=== PATIENT | male | born 1985 | race African-American/Black ===

== ENCOUNTER 2021-02-27 13:36 | Inpatient (IN) | payer OTHER ==
[2021-02-27 16:56] VITALS: BMI 28.4
[2021-02-27] MEDS ORDERED: MAGNESIUM CITRATE 300 ML BOTTLE PO PRN (17:07)
[2021-02-27] MEDS ORDERED: MENTHOL/PHENOL 1 EACH UD MM PRN (17:07)
[2021-02-27] MEDS ORDERED: MAGNESIUM HYDROX 2400MG/30ML ORAL SUSPENSION 30 ML CUP PO PRN (17:07)
[2021-02-27] MEDS ORDERED: ACETAMINOPHEN 325 MG TABLET (FP) PO PRN ×2 (17:07)
[2021-02-27] MEDS ORDERED: BISMUTH SUBSALICYLATE 524 MG/30 ML UD PO PRN (17:07)
[2021-02-27] MEDS ORDERED: MAG HYDROX/AL HYDROX/SIMETH 30 ML UNIT-DOSE CUP PO PRN (17:07)
[2021-02-27] MEDS ORDERED: NICOTINE POLACRILEX 2 MG GUM BUC PRN (17:07)
[2021-02-27] MEDS ORDERED: TRIMETHOBENZAMIDE HCL 200MG/2ML INJ IM ONE ×2 (17:42→17:52)
[2021-02-27] MEDS: diazePAM 5 MG TABLET PO PRN (19:59)
[2021-02-27] MEDS: hydrOXYzine PAMOATE 25 MG CAPSULE (FP) PO PRN (19:59)
[2021-02-27] MEDS: METHOCARBAMOL 500 MG TABLET PO PRN (19:59)
[2021-02-27] MEDS: IBUPROFEN 400 MG TABLET (FP) PO PRN (20:20)
[2021-02-27] MEDS: cloNIDine HCL 0.1 MG TABLET PO SCH (20:21)
[2021-02-27] MEDS ORDERED: PATIENT'S OWN MEDICATION (NON-FORMULARY) (Melatonin [Melatonin] 10 MG Tablet) PO SCH (22:00)
[2021-02-27] MEDS: AMOXICILLIN 500 MG CAPSULE (FP) PO SCH (23:14)
[2021-02-27] MEDS: diazePAM 5 MG TABLET PO SCH (23:14)
[2021-02-27] MEDS: MELATONIN 5 MG TABLETS PO SCH (23:15)
[2021-02-27] MEDS: THIAMINE HCL 100 MG TABLET (FP) PO SCH (23:16)
[2021-02-27] MEDS: SELENIUM SULFIDE 2.5% LOTION 4 OZ. TP SCH (23:18)
[2021-02-27] MEDS: BICTEGRAV/EMTRICIT/TENOFOV (BIKTARVY) 50-200-25 MG TABLET PO SCH (23:19)
[2021-02-27] MEDS: PRAZOSIN HCL 5 MG CAPSULE PO SCH (23:36)
[2021-02-28] MEDS: diazePAM 5 MG TABLET PO SCH ×4 (05:55→22:22)
[2021-02-28] MEDS: AMOXICILLIN 500 MG CAPSULE (FP) PO SCH ×3 (06:48→22:22)
[2021-02-28] MEDS ORDERED: METHADONE HCL 10 MG TABLET PO ONE (08:45)
[2021-02-28] MEDS ORDERED: METHADONE 160 MG, METHADONE 5 MG PO ONE (09:15)
[2021-02-28] MEDS ORDERED: METHADONE HCL 5 MG TABLET ONE (09:48)
[2021-02-28] MEDS ORDERED: METHADONE HCL 40 MG DISPERSABLE TABLET ONE (09:48)
[2021-02-28] MEDS ORDERED: PATIENT'S OWN MEDICATION (NON-FORMULARY) (Omeprazole 20 MG Capsule.Dr) PO SCH (10:00)
[2021-02-28] MEDS: cloNIDine HCL 0.1 MG TABLET PO SCH (10:06)
[2021-02-28] MEDS: METHOCARBAMOL 500 MG TABLET PO PRN (10:06)
[2021-02-28] MEDS: amLODIPine BESYLATE 5 MG TABLET (FP) PO SCH (10:06)
[2021-02-28] MEDS: PRENATAL VITAMINS W/ FOLIC ACID TABLET (FP) PO SCH (10:07)
[2021-02-28] MEDS: hydrOXYzine PAMOATE 25 MG CAPSULE (FP) PO PRN (10:07)
[2021-02-28] MEDS: BICTEGRAV/EMTRICIT/TENOFOV (BIKTARVY) 50-200-25 MG TABLET PO SCH (10:07)
[2021-02-28] MEDS: PANTOPRAZOLE 40 MG TABLET PO SCH (10:07)
[2021-02-28] MEDS: SELENIUM SULFIDE 2.5% LOTION 4 OZ. TP SCH (10:08)
[2021-02-28] MEDS: NICOTINE 14 MG/24 HOURS TOPICAL PATCH TD SCH (10:08)
[2021-02-28 10:27] LABS: HEMATOCRIT 34.5 % (35.4-49); HEMOGLOBIN 11.4 GM/dL (11.7-16.9); MCH 29.6 pg (25.7-33.7); MCHC 33.1 g/dl (32.0-35.9); MEAN CELL VOLUME 89.5 fl (80-96); PLATELET COUNT 219 K/MM3 (134-434); RBC 3.85 M/mm3 (4.00-5.60); RDW 15.7 % (11.9-15.9); WHITE BLOOD COUNT 4.8 K/mm3 (4.0-10.0)
[2021-02-28 10:37] LABS: ALBUMIN 3.8 g/dl (3.4-5.0); BLOOD UREA NITROGEN 9.2 mg/dL (7-18)
[2021-02-28 10:40] LABS: CREATININE 0.9 mg/dL (0.55-1.3)
[2021-02-28 10:41] LABS: TOT PROT 8.3 g/dl (6.4-8.2)
[2021-02-28] MEDS: IBUPROFEN 400 MG TABLET (FP) PO PRN ×2 (15:22→22:23)
[2021-02-28] MEDS: MELATONIN 5 MG TABLETS PO SCH (22:22)
[2021-02-28] MEDS: THIAMINE HCL 100 MG TABLET (FP) PO SCH (22:22)
[2021-02-28] MEDS: PRAZOSIN HCL 5 MG CAPSULE PO SCH (22:22)
[2021-03-01] MEDS ORDERED: METHADONE HCL 40 MG DISPERSABLE TABLET ONE (04:46)
[2021-03-01] MEDS ORDERED: METHADONE HCL 5 MG TABLET ONE (04:46)
[2021-03-01] MEDS: AMOXICILLIN 500 MG CAPSULE (FP) PO SCH ×3 (05:44→22:28)
[2021-03-01] MEDS: diazePAM 5 MG TABLET PO SCH ×5 (05:45→22:31)
[2021-03-01] MEDS: METHADONE 160 MG, METHADONE 5 MG PO SCH (05:45)
[2021-03-01] MEDS ORDERED: METHADONE HCL 40 MG DISPERSABLE TABLET PO SCH (06:00)
[2021-03-01] MEDS: IBUPROFEN 400 MG TABLET (FP) PO PRN ×2 (10:14→22:33)
[2021-03-01] MEDS: NICOTINE 14 MG/24 HOURS TOPICAL PATCH TD SCH (10:15)
[2021-03-01] MEDS: PANTOPRAZOLE 40 MG TABLET PO SCH (10:15)
[2021-03-01] MEDS: BICTEGRAV/EMTRICIT/TENOFOV (BIKTARVY) 50-200-25 MG TABLET PO SCH (10:15)
[2021-03-01] MEDS: amLODIPine BESYLATE 5 MG TABLET (FP) PO SCH (10:15)
[2021-03-01] MEDS: PRENATAL VITAMINS W/ FOLIC ACID TABLET (FP) PO SCH (10:16)
[2021-03-01] MEDS: cloNIDine HCL 0.1 MG TABLET PO SCH (10:16)
[2021-03-01] MEDS: SELENIUM SULFIDE 2.5% LOTION 4 OZ. TP SCH (10:16)
[2021-03-01] MEDS: METHOCARBAMOL 500 MG TABLET PO PRN (17:41)
[2021-03-01] MEDS: hydrOXYzine PAMOATE 25 MG CAPSULE (FP) PO PRN (17:43)
[2021-03-01] MEDS: diazePAM 5 MG TABLET PO PRN ×2 (17:43→22:31)
[2021-03-01] MEDS: MELATONIN 5 MG TABLETS PO SCH (22:28)
[2021-03-01] MEDS: PRAZOSIN HCL 5 MG CAPSULE PO SCH (22:28)
[2021-03-01] MEDS: THIAMINE HCL 100 MG TABLET (FP) PO SCH (22:28)
[2021-03-02] MEDS: ONDANSETRON *ODT* 4 MG TABLET SL PRN ×2 (01:32→22:23)
[2021-03-02] MEDS ORDERED: METHADONE HCL 40 MG DISPERSABLE TABLET ONE (05:00)
[2021-03-02] MEDS ORDERED: METHADONE HCL 5 MG TABLET ONE (05:01)
[2021-03-02] MEDS: diazePAM 5 MG TABLET PO SCH ×2 (06:03→17:33)
[2021-03-02] MEDS: AMOXICILLIN 500 MG CAPSULE (FP) PO SCH ×3 (06:04→22:21)
[2021-03-02] MEDS: METHADONE 160 MG, METHADONE 5 MG PO SCH (06:04)
[2021-03-02] MEDS: BICTEGRAV/EMTRICIT/TENOFOV (BIKTARVY) 50-200-25 MG TABLET PO SCH (10:11)
[2021-03-02] MEDS: amLODIPine BESYLATE 5 MG TABLET (FP) PO SCH (10:12)
[2021-03-02] MEDS: PRENATAL VITAMINS W/ FOLIC ACID TABLET (FP) PO SCH (10:12)
[2021-03-02] MEDS: cloNIDine HCL 0.1 MG TABLET PO SCH (10:12)
[2021-03-02] MEDS: PANTOPRAZOLE 40 MG TABLET PO SCH (10:12)
[2021-03-02] MEDS: NICOTINE 14 MG/24 HOURS TOPICAL PATCH TD SCH (10:12)
[2021-03-02] MEDS: SELENIUM SULFIDE 2.5% LOTION 4 OZ. TP SCH (10:14)
[2021-03-02] MEDS: diazePAM 5 MG TABLET PO PRN ×2 (11:13→14:35)
[2021-03-02] MEDS: IBUPROFEN 400 MG TABLET (FP) PO PRN ×2 (11:13→17:31)
[2021-03-02 14:11] LABS: SARS-CoV-2 NAA Not Detected (Not Detected)
[2021-03-02 19:47] LABS: URINE APPEARANCE CLEAR; URINE BILIRUBIN NEGATIVE (NEGATIVE); URINE COLOR YELLOW; URINE GLUCOSE (UA) NEGATIVE (NEGATIVE); URINE KETONE NEGATIVE (NEGATIVE); URINE LEUK ESTERASE NEGATIVE (NEGATIVE); URINE NITRITE NEGATIVE (NEGATIVE); URINE PROTEIN NEGATIVE (NEGATIVE)
[2021-03-02] MEDS: MELATONIN 5 MG TABLETS PO SCH (22:21)
[2021-03-02] MEDS: THIAMINE HCL 100 MG TABLET (FP) PO SCH (22:21)
[2021-03-02] MEDS: PRAZOSIN HCL 5 MG CAPSULE PO SCH (22:22)
[2021-03-02] MEDS: hydrOXYzine PAMOATE 25 MG CAPSULE (FP) PO PRN (22:22)
[2021-03-02] MEDS: METHOCARBAMOL 500 MG TABLET PO PRN (22:22)
[2021-03-03] MEDS ORDERED: METHADONE HCL 5 MG TABLET ONE (04:16)
[2021-03-03] MEDS ORDERED: METHADONE HCL 40 MG DISPERSABLE TABLET ONE (04:16)
[2021-03-03] MEDS: AMOXICILLIN 500 MG CAPSULE (FP) PO SCH (05:40)
[2021-03-03] MEDS: METHADONE 160 MG, METHADONE 5 MG PO SCH (05:40)
[2021-03-03] MEDS: IBUPROFEN 400 MG TABLET (FP) PO PRN (05:41)
[2021-03-03] MEDS ORDERED: diazePAM 5 MG TABLET PO ONE (06:00)
[2021-03-03 09:04] VITALS: BP 131/86; PULSE 89; TEMP 96.1
[2021-03-03] MEDS: PANTOPRAZOLE 40 MG TABLET PO SCH (09:45)
[2021-03-03] MEDS: amLODIPine BESYLATE 5 MG TABLET (FP) PO SCH (09:45)
[2021-03-03] MEDS: BICTEGRAV/EMTRICIT/TENOFOV (BIKTARVY) 50-200-25 MG TABLET PO SCH (09:46)
[2021-03-03] MEDS: cloNIDine HCL 0.1 MG TABLET PO SCH (09:46)
[2021-03-03] MEDS: NICOTINE 14 MG/24 HOURS TOPICAL PATCH TD SCH (09:46)
[2021-03-03] MEDS: PRENATAL VITAMINS W/ FOLIC ACID TABLET (FP) PO SCH (09:46)
[2021-03-03] MEDS: SELENIUM SULFIDE 2.5% LOTION 4 OZ. TP SCH (09:47)
== END 2021-03-03 12:06 | disposition home or self-care (01) | DRG 773 ==
LOC: YASAS 13:36 → Y3N 17:38
PROVIDERS: ADMIT Allergy & Immunology; ATTEND Allergy & Immunology
PROC: HZ2ZZZZ Detoxification Services for Substance Abuse Treatment (ICD-10-PCS; principal; 2021-02-27)
DX: F11.23 Opioid dependence with withdrawal (principal); F13.20 Sedative, hypnotic or anxiolytic dependence, uncomplicated; F12.20 Cannabis dependence, uncomplicated; F17.210 Nicotine dependence, cigarettes, uncomplicated; F19.24 Other psychoactive substance dependence with psychoactive substance-induced mood disorder; Z21 Asymptomatic human immunodeficiency virus [HIV] infection status; D64.9 Anemia, unspecified; G47.00 Insomnia, unspecified; I10 Essential (primary) hypertension; K21.9 Gastro-esophageal reflux disease without esophagitis; Z56.0 Unemployment, unspecified; Z59.0 Homelessness
CPT/HCPCS: 36415; 80053; 81003; 85027; 86780; 93005; 93010; C9803; J0735; Q0162; U0003; U0005

== ENCOUNTER 2021-05-22 12:16 | Inpatient (IN) | payer OTHER ==
[2021-05-22 15:12] VITALS: BMI 28.8
[2021-05-22] MEDS ORDERED: MAGNESIUM HYDROX 2400MG/30ML ORAL SUSPENSION 30 ML CUP PO PRN (16:11)
[2021-05-22] MEDS ORDERED: MAG HYDROX/AL HYDROX/SIMETH 30 ML UNIT-DOSE CUP PO PRN (16:11)
[2021-05-22] MEDS ORDERED: ACETAMINOPHEN 325 MG TABLET (FP) PO PRN ×2 (16:11)
[2021-05-22] MEDS ORDERED: MENTHOL/PHENOL 1 EACH UD MM PRN (16:11)
[2021-05-22] MEDS ORDERED: MAGNESIUM CITRATE 300 ML BOTTLE PO PRN (16:11)
[2021-05-22] MEDS ORDERED: BISMUTH SUBSALICYLATE 524 MG/30 ML PO PRN (16:11)
[2021-05-22] MEDS ORDERED: ONDANSETRON *ODT* 4 MG TABLET SL PRN (16:11)
[2021-05-22] MEDS ORDERED: ALBUTEROL SO4 HFA INHALER IH PRN (16:15)
[2021-05-22] MEDS ORDERED: PROMETHAZINE HCL ORAL SYRUP 6.25 MG/5 ML (BULK BOTTLE) PO PRN (16:32)
[2021-05-22] MEDS ORDERED: hydrOXYzine PAMOATE 25 MG CAPSULE (FP) PO ONE (19:10)
[2021-05-22] MEDS ORDERED: LORazepam 2 MG TABLET ONE ×2 (19:10→23:28)
[2021-05-22] MEDS: LORazepam 2 MG TABLET PO SCH ×2 (19:12→23:28)
[2021-05-22] MEDS: hydrOXYzine PAMOATE 25 MG CAPSULE (FP) PO SCH ×2 (19:12→23:26)
[2021-05-22] MEDS ORDERED: MELATONIN 5 MG TABLETS PO SCH (22:00)
[2021-05-22] MEDS: PRENATAL VITAMINS W/ FOLIC ACID TABLET (FP) PO SCH (23:25)
[2021-05-22] MEDS: THIAMINE HCL 100 MG TABLET (FP) PO SCH (23:26)
[2021-05-23] MEDS ORDERED: LORazepam 2 MG TABLET ONE ×2 (05:22→10:28)
[2021-05-23] MEDS ORDERED: hydrOXYzine PAMOATE 25 MG CAPSULE (FP) PO ONE (05:22)
[2021-05-23] MEDS: hydrOXYzine PAMOATE 25 MG CAPSULE (FP) PO SCH ×2 (05:45→10:23)
[2021-05-23] MEDS: LORazepam 2 MG TABLET PO SCH ×4 (05:45→22:11)
[2021-05-23] MEDS ORDERED: methaDONE HCL 10 MG TABLET PO SCH (08:30)
[2021-05-23] MEDS ORDERED: methaDONE HCL 40 MG DISPERSABLE TABLET ONE (09:58)
[2021-05-23] MEDS ORDERED: PATIENT'S OWN MEDICATION (NON-FORMULARY) (Clonidine Hcl [Clonidine Hcl Er] 0.1 MG Tab.Er.1 PO SCH (10:00)
[2021-05-23] MEDS ORDERED: cloNIDine HCL 0.1 MG TABLET ONE (10:07)
[2021-05-23 10:10] LABS: HEMOGLOBIN 12.5 GM/dL (11.7-16.9); MCH 29.4 pg (25.7-33.7); MCHC 32.9 g/dl (32.0-35.9); MEAN CELL VOLUME 89.5 fl (80-96); MEAN PLT VOLUME 8.5 fl (7.5-11.1); PLATELET COUNT 183 10^3/uL (134-434); RBC 4.25 M/mm3 (4.00-5.60); RDW 14.3 % (11.9-15.9)
[2021-05-23 10:22] LABS: CALCIUM 8.8 mg/dL (8.5-10.1)
[2021-05-23] MEDS: PRENATAL VITAMINS W/ FOLIC ACID TABLET (FP) PO SCH (10:23)
[2021-05-23 10:24] LABS: ALBUMIN 3.3 g/dl (3.4-5.0)
[2021-05-23] MEDS: BICTEGRAV/EMTRICIT/TENOFOV (BIKTARVY) 50-200-25 MG TABLET PO SCH (10:24)
[2021-05-23 10:29] LABS: BLOOD UREA NITROGEN 7.9 mg/dL (7-18); TOT PROT 7.1 g/dl (6.4-8.2)
[2021-05-23 10:33] LABS: BILIRUBIN,TOTAL 0.4 mg/dL (0.2-1)
[2021-05-23] MEDS ORDERED: hydrOXYzine PAMOATE 50 MG CAPSULE (FP) PO PRN (12:04)
[2021-05-23] MEDS ORDERED: guaiFENesin 200 MG/10 ML 10 ML UNIT-DOSE CUPS PO PRN (12:31)
[2021-05-23] MEDS: GABAPENTIN 300 MG CAPSULE PO SCH ×2 (15:40→22:10)
[2021-05-23] MEDS: amLODIPine BESYLATE 10 MG TABLET (FP) PO SCH (15:40)
[2021-05-23] MEDS: AMOXICILLIN 500 MG CAPSULE (FP) PO SCH ×2 (15:40→22:25)
[2021-05-23] MEDS: NICOTINE 10 MG CARTRIDGE (INHALER) IH PRN (17:50)
[2021-05-23] MEDS: IBUPROFEN 400 MG TABLET (FP) PO PRN (17:54)
[2021-05-23] MEDS: THIAMINE HCL 100 MG TABLET (FP) PO SCH (22:11)
[2021-05-23] MEDS: cloNIDine HCL 0.1 MG TABLET PO SCH (22:11)
[2021-05-23] MEDS: PROMETHAZINE HCL ORAL SYRUP 6.25 MG/5 ML (BULK BOTTLE) PO PRN (22:14)
[2021-05-23] MEDS: SELENIUM SULFIDE 2.5% LOTION 4 OZ. TP SCH (22:15)
[2021-05-23] MEDS: MELATONIN 5 MG TABLETS PO SCH (23:31)
[2021-05-24] MEDS: LORazepam 1 MG TABLET PO PRN ×2 (02:54→14:42)
[2021-05-24] MEDS: AMOXICILLIN 500 MG CAPSULE (FP) PO SCH ×3 (05:44→23:03)
[2021-05-24] MEDS: GABAPENTIN 300 MG CAPSULE PO SCH ×3 (05:44→22:23)
[2021-05-24] MEDS: LORazepam 1 MG TABLET PO SCH ×4 (05:44→22:23)
[2021-05-24] MEDS ORDERED: methaDONE HCL 40 MG DISPERSABLE TABLET ONE (05:46)
[2021-05-24] MEDS: PROMETHAZINE HCL ORAL SYRUP 6.25 MG/5 ML (BULK BOTTLE) PO PRN ×3 (05:49→18:11)
[2021-05-24] MEDS: SELENIUM SULFIDE 2.5% LOTION 4 OZ. TP SCH (09:33)
[2021-05-24] MEDS: PRENATAL VITAMINS W/ FOLIC ACID TABLET (FP) PO SCH (10:19)
[2021-05-24] MEDS: cloNIDine HCL 0.1 MG TABLET PO SCH ×2 (10:20→22:23)
[2021-05-24] MEDS: METHOCARBAMOL 500 MG TABLET PO PRN (10:20)
[2021-05-24] MEDS: amLODIPine BESYLATE 10 MG TABLET (FP) PO SCH (10:20)
[2021-05-24] MEDS: BICTEGRAV/EMTRICIT/TENOFOV (BIKTARVY) 50-200-25 MG TABLET PO SCH (12:17)
[2021-05-24] MEDS: IBUPROFEN 400 MG TABLET (FP) PO PRN (12:52)
[2021-05-24] MEDS: NICOTINE 10 MG CARTRIDGE (INHALER) IH PRN (14:42)
[2021-05-24] MEDS: FAMOTIDINE 20 MG TABLET PO SCH (22:22)
[2021-05-24] MEDS: THIAMINE HCL 100 MG TABLET (FP) PO SCH (22:23)
[2021-05-24] MEDS: MELATONIN 5 MG TABLETS PO SCH (22:24)
[2021-05-25] MEDS: PROMETHAZINE HCL ORAL SYRUP 6.25 MG/5 ML (BULK BOTTLE) PO PRN ×3 (00:11→17:08)
[2021-05-25] MEDS: LORazepam 0.5 MG TABLET PO PRN ×2 (01:17→14:15)
[2021-05-25] MEDS: METHOCARBAMOL 500 MG TABLET PO PRN (01:18)
[2021-05-25] MEDS: IBUPROFEN 400 MG TABLET (FP) PO PRN (01:18)
[2021-05-25] MEDS ORDERED: methaDONE HCL 40 MG DISPERSABLE TABLET ONE (04:32)
[2021-05-25] MEDS: LORazepam 0.5 MG TABLET PO SCH ×4 (05:14→22:35)
[2021-05-25] MEDS: GABAPENTIN 300 MG CAPSULE PO SCH ×3 (05:15→22:35)
[2021-05-25] MEDS: AMOXICILLIN 500 MG CAPSULE (FP) PO SCH ×3 (05:15→22:35)
[2021-05-25] MEDS ORDERED: MASKS NR ONE (09:16)
[2021-05-25] MEDS: PRENATAL VITAMINS W/ FOLIC ACID TABLET (FP) PO SCH (10:01)
[2021-05-25] MEDS: amLODIPine BESYLATE 10 MG TABLET (FP) PO SCH (10:02)
[2021-05-25] MEDS: cloNIDine HCL 0.1 MG TABLET PO SCH ×2 (10:02→22:35)
[2021-05-25] MEDS: BICTEGRAV/EMTRICIT/TENOFOV (BIKTARVY) 50-200-25 MG TABLET PO SCH (10:02)
[2021-05-25] MEDS: FAMOTIDINE 20 MG TABLET PO SCH ×2 (10:02→22:35)
[2021-05-25] MEDS: SELENIUM SULFIDE 2.5% LOTION 4 OZ. TP SCH (12:25)
[2021-05-25] MEDS: MELATONIN 5 MG TABLETS PO SCH (23:16)
[2021-05-25] MEDS: THIAMINE HCL 100 MG TABLET (FP) PO SCH (23:16)
[2021-05-26] MEDS: IBUPROFEN 400 MG TABLET (FP) PO PRN (01:31)
[2021-05-26] MEDS: PROMETHAZINE HCL ORAL SYRUP 6.25 MG/5 ML (BULK BOTTLE) PO PRN ×2 (01:31→09:31)
[2021-05-26] MEDS ORDERED: methaDONE HCL 40 MG DISPERSABLE TABLET ONE (04:26)
[2021-05-26] MEDS ORDERED: LORazepam 0.5 MG TABLET PO ONE (05:00)
[2021-05-26] MEDS: GABAPENTIN 300 MG CAPSULE PO SCH (05:51)
[2021-05-26] MEDS: BICTEGRAV/EMTRICIT/TENOFOV (BIKTARVY) 50-200-25 MG TABLET PO SCH (07:00)
[2021-05-26] MEDS: AMOXICILLIN 500 MG CAPSULE (FP) PO SCH (07:00)
[2021-05-26 09:20] VITALS: BP 122/78; PULSE 81; TEMP 97.8
[2021-05-26] MEDS: PRENATAL VITAMINS W/ FOLIC ACID TABLET (FP) PO SCH (09:30)
[2021-05-26] MEDS: amLODIPine BESYLATE 10 MG TABLET (FP) PO SCH (09:30)
[2021-05-26] MEDS: SELENIUM SULFIDE 2.5% LOTION 4 OZ. TP SCH (09:30)
[2021-05-26] MEDS: FAMOTIDINE 20 MG TABLET PO SCH (09:30)
[2021-05-26] MEDS: cloNIDine HCL 0.1 MG TABLET PO SCH (09:31)
== END 2021-05-26 10:49 | disposition home or self-care (01) | DRG 773 ==
LOC: YASAS 12:16 → Y3N 05-23 10:00
PROVIDERS: ADMIT Allergy & Immunology; ATTEND Allergy & Immunology
PROC: HZ2ZZZZ Detoxification Services for Substance Abuse Treatment (ICD-10-PCS; principal; 2021-05-23)
DX: F13.230 Sedative, hypnotic or anxiolytic dependence with withdrawal, uncomplicated (principal); F11.20 Opioid dependence, uncomplicated; F12.20 Cannabis dependence, uncomplicated; F17.213 Nicotine dependence, cigarettes, with withdrawal; F43.10 Post-traumatic stress disorder, unspecified; F19.24 Other psychoactive substance dependence with psychoactive substance-induced mood disorder; F19.282 Other psychoactive substance dependence with psychoactive substance-induced sleep disorder; I10 Essential (primary) hypertension; J45.909 Unspecified asthma, uncomplicated; M54.5 Low back pain; G89.29 Other chronic pain; K21.9 Gastro-esophageal reflux disease without esophagitis; Z21 Asymptomatic human immunodeficiency virus [HIV] infection status; G47.00 Insomnia, unspecified; R46.0 Very low level of personal hygiene; K02.9 Dental caries, unspecified; D72.819 Decreased white blood cell count, unspecified; M41.9 Scoliosis, unspecified; Z91.013 Allergy to seafood; Z98.890 Other specified postprocedural states; Z56.0 Unemployment, unspecified
CPT/HCPCS: 36415; 71046-TC-FY; 80053; 85027; 86780; C9803; J0735; Q0162; U0003; U0005

== ENCOUNTER 2022-05-01 14:22 | Inpatient (IN) | payer OTHER ==
[2022-05-01] MEDS ORDERED: BISMUTH SUBSALICYLATE 524 MG/30 ML PO PRN (18:02)
[2022-05-01] MEDS ORDERED: NALOXONE HCL (KLOXXADO) 8 MG SPRAY NS PRN (18:02)
[2022-05-01] MEDS ORDERED: ONDANSETRON *ODT* 4 MG TABLET SL PRN (18:02)
[2022-05-01] MEDS ORDERED: LOPERAMIDE HCL 2 MG CAPSULE PO PRN (18:02)
[2022-05-01] MEDS ORDERED: IBUPROFEN 400 MG TABLET (FP) PO PRN (18:02)
[2022-05-01] MEDS ORDERED: ACETAMINOPHEN 325 MG TABLET (FP) PO PRN ×2 (18:02)
[2022-05-01] MEDS ORDERED: DICYCLOMINE HCL 10 MG CAPSULE PO PRN (18:02)
[2022-05-01] MEDS ORDERED: MAGNESIUM CITRATE 300 ML BOTTLE PO PRN (18:02)
[2022-05-01] MEDS ORDERED: BENZOCAINE/MENTHOL (CHLORASEPTIC ) LOZENGE MM PRN (18:02)
[2022-05-01] MEDS ORDERED: NICOTINE 10 MG CARTRIDGE (INHALER) IH PRN (18:02)
[2022-05-01] MEDS ORDERED: MAGNESIUM HYDROX 2400MG/30ML ORAL SUSPENSION 30 ML CUP PO PRN (18:02)
[2022-05-01] MEDS ORDERED: DICYCLOMINE HCL 10 MG CAPSULE ONE (19:37)
[2022-05-01] MEDS ORDERED: ONDANSETRON *ODT* 4 MG TABLET ONE (19:37)
[2022-05-01] MEDS: LORazepam 1 MG TABLET PO PRN (19:38)
[2022-05-01] MEDS ORDERED: LORazepam 1 MG TABLET ONE ×2 (19:38→23:58)
[2022-05-01] MEDS ORDERED: IBUPROFEN 600 MG TABLET (FP) PO ONE (19:43)
[2022-05-01] MEDS: IBUPROFEN 600 MG TABLET (FP) PO PRN (19:44)
[2022-05-01] MEDS ORDERED: ALBUTEROL SO4 HFA INHALER IH PRN (19:45)
[2022-05-01 19:53] VITALS: BMI 23.4
[2022-05-01] MEDS ORDERED: PATIENT'S OWN MEDICATION (NON-FORMULARY) (Clonidine Hcl [Clonidine Hcl Er] 0.1 MG Tab.Er.1 PO SCH (22:00)
[2022-05-01] MEDS ORDERED: GABAPENTIN 100 MG CAPSULE ONE (23:58)
[2022-05-02] MEDS: LORazepam 2 MG TABLET PO SCH ×5 (00:02→22:22)
[2022-05-02] MEDS: GABAPENTIN 300 MG CAPSULE PO SCH ×4 (00:02→22:22)
[2022-05-02] MEDS: THIAMINE HCL 100 MG TABLET (FP) PO SCH ×2 (00:02→22:22)
[2022-05-02] MEDS: MELATONIN 5 MG TABLETS PO SCH ×2 (00:02→22:22)
[2022-05-02] MEDS ORDERED: LORazepam 1 MG TABLET ONE (06:30)
[2022-05-02] MEDS ORDERED: GABAPENTIN 100 MG CAPSULE ONE (06:30)
[2022-05-02] MEDS ORDERED: LORazepam 2 MG TABLET ONE (10:09)
[2022-05-02 10:38] LABS: HEMATOCRIT 35.9 % (35.4-49); HEMOGLOBIN 11.6 GM/dL (11.7-16.9); MCH 27.6 pg (25.7-33.7); MCHC 32.4 g/dl (32.0-35.9); MEAN CELL VOLUME 85.2 fl (80-96); MEAN PLT VOLUME 8.1 fl (7.5-11.1); PLATELET COUNT 256 10^3/uL (134-434); RBC 4.22 M/mm3 (4.00-5.60); WHITE BLOOD COUNT 4.1 K/mm3 (4.0-10.0)
[2022-05-02 10:50] LABS: CALCIUM 9.1 mg/dL (8.5-10.1)
[2022-05-02 10:51] LABS: ALBUMIN 3.1 g/dl (3.4-5.0); BLOOD UREA NITROGEN 4.3 mg/dL (7-18)
[2022-05-02 10:54] LABS: CREATININE 0.9 mg/dL (0.55-1.3)
[2022-05-02 10:56] LABS: BILIRUBIN,TOTAL 0.9 mg/dL (0.2-1)
[2022-05-02] MEDS ORDERED: POTASSIUM CHLORIDE TABS 20 MEQ TABLET.ER (FP) PO ONE (11:17)
[2022-05-02] MEDS ORDERED: methaDONE HCL 10 MG TABLET PO SCH (11:30)
[2022-05-02] MEDS ORDERED: methaDONE HCL 40 MG DISPERSABLE TABLET ONE (13:05)
[2022-05-02] MEDS ORDERED: methaDONE HCL 10 MG TABLET ONE (13:05)
[2022-05-02] MEDS: BICTEGRAV/EMTRICIT/TENOFOV (BIKTARVY) 50-200-25 MG TABLET PO SCH (13:09)
[2022-05-02] MEDS: METHOCARBAMOL 500 MG TABLET PO PRN (13:10)
[2022-05-02] MEDS: amLODIPine BESYLATE 10 MG TABLET (FP) PO SCH (13:10)
[2022-05-02] MEDS: PRENATAL VITAMINS W/ FOLIC ACID TABLET (FP) PO SCH (13:31)
[2022-05-02] MEDS: LORazepam 1 MG TABLET PO PRN (13:56)
[2022-05-02] MEDS: IBUPROFEN 600 MG TABLET (FP) PO PRN (22:24)
[2022-05-03] MEDS: LORazepam 1 MG TABLET PO PRN ×2 (00:46→09:15)
[2022-05-03] MEDS: METHOCARBAMOL 500 MG TABLET PO PRN ×2 (00:46→10:22)
[2022-05-03] MEDS ORDERED: methaDONE HCL 40 MG DISPERSABLE TABLET ONE (04:13)
[2022-05-03] MEDS ORDERED: methaDONE HCL 10 MG TABLET ONE (04:13)
[2022-05-03] MEDS: GABAPENTIN 300 MG CAPSULE PO SCH ×3 (05:30→22:24)
[2022-05-03] MEDS: LORazepam 1 MG TABLET PO SCH ×4 (05:30→22:23)
[2022-05-03] MEDS: IBUPROFEN 600 MG TABLET (FP) PO PRN ×3 (05:35→18:00)
[2022-05-03] MEDS: cloNIDine HCL 0.1 MG TABLET PO PRN ×3 (07:16→22:27)
[2022-05-03] MEDS: BICTEGRAV/EMTRICIT/TENOFOV (BIKTARVY) 50-200-25 MG TABLET PO SCH (10:20)
[2022-05-03] MEDS: amLODIPine BESYLATE 10 MG TABLET (FP) PO SCH (10:20)
[2022-05-03] MEDS: PRENATAL VITAMINS W/ FOLIC ACID TABLET (FP) PO SCH (10:20)
[2022-05-03] MEDS ORDERED: POTASSIUM CHLORIDE ORAL LIQUID 20 MEQ/15 ML PO ONE (13:04)
[2022-05-03] MEDS ORDERED: NICOTINE POLACRILEX 4 MG GUM BUC PRN (14:52)
[2022-05-03] MEDS: MELATONIN 5 MG TABLETS PO SCH (22:24)
[2022-05-03] MEDS: THIAMINE HCL 100 MG TABLET (FP) PO SCH (22:24)
[2022-05-04] MEDS: IBUPROFEN 600 MG TABLET (FP) PO PRN ×2 (03:50→18:24)
[2022-05-04] MEDS: LORazepam 0.5 MG TABLET PO PRN ×3 (03:51→14:53)
[2022-05-04] MEDS: LORazepam 0.5 MG TABLET PO SCH ×5 (04:00→23:02)
[2022-05-04] MEDS: MAG HYDROX/AL HYDROX/SIMETH 30 ML UNIT-DOSE CUP PO PRN (04:02)
[2022-05-04] MEDS ORDERED: methaDONE HCL 40 MG DISPERSABLE TABLET ONE (04:39)
[2022-05-04] MEDS ORDERED: methaDONE HCL 10 MG TABLET ONE (04:39)
[2022-05-04] MEDS: GABAPENTIN 300 MG CAPSULE PO SCH ×3 (05:15→23:02)
[2022-05-04] MEDS: METHOCARBAMOL 500 MG TABLET PO PRN ×2 (08:57→14:54)
[2022-05-04] MEDS: cloNIDine HCL 0.1 MG TABLET PO PRN ×2 (09:00→23:02)
[2022-05-04] MEDS: amLODIPine BESYLATE 10 MG TABLET (FP) PO SCH (09:00)
[2022-05-04] MEDS: hydrOXYzine PAMOATE 25 MG CAPSULE (FP) PO PRN ×2 (09:00→18:02)
[2022-05-04] MEDS: PRENATAL VITAMINS W/ FOLIC ACID TABLET (FP) PO SCH (09:00)
[2022-05-04] MEDS: BICTEGRAV/EMTRICIT/TENOFOV (BIKTARVY) 50-200-25 MG TABLET PO SCH (11:47)
[2022-05-04] MEDS: PROMETHAZINE HCL 25 MG TABLET PO PRN (18:02)
[2022-05-04] MEDS: MELATONIN 5 MG TABLETS PO SCH (23:02)
[2022-05-04] MEDS: THIAMINE HCL 100 MG TABLET (FP) PO SCH (23:02)
[2022-05-05] MEDS: IBUPROFEN 600 MG TABLET (FP) PO PRN (02:02)
[2022-05-05] MEDS: METHOCARBAMOL 500 MG TABLET PO PRN ×2 (02:02→17:38)
[2022-05-05] MEDS: MAG HYDROX/AL HYDROX/SIMETH 30 ML UNIT-DOSE CUP PO PRN (02:14)
[2022-05-05] MEDS: PROMETHAZINE HCL 25 MG TABLET PO PRN ×2 (02:18→18:55)
[2022-05-05] MEDS ORDERED: methaDONE HCL 10 MG TABLET ONE (04:15)
[2022-05-05] MEDS ORDERED: methaDONE HCL 40 MG DISPERSABLE TABLET ONE (04:16)
[2022-05-05] MEDS ORDERED: LORazepam 0.5 MG TABLET PO ONE (05:00)
[2022-05-05] MEDS: GABAPENTIN 300 MG CAPSULE PO SCH ×3 (05:02→22:40)
[2022-05-05] MEDS: BICTEGRAV/EMTRICIT/TENOFOV (BIKTARVY) 50-200-25 MG TABLET PO SCH (11:24)
[2022-05-05] MEDS: amLODIPine BESYLATE 10 MG TABLET (FP) PO SCH (11:24)
[2022-05-05] MEDS: cloNIDine HCL 0.1 MG TABLET PO PRN ×3 (11:26→22:40)
[2022-05-05] MEDS: PRENATAL VITAMINS W/ FOLIC ACID TABLET (FP) PO SCH (11:49)
[2022-05-05] MEDS: hydrOXYzine PAMOATE 25 MG CAPSULE (FP) PO PRN ×2 (17:38→22:40)
[2022-05-05] MEDS: FAMOTIDINE 20 MG TABLET PO SCH (17:49)
[2022-05-05] MEDS: MELATONIN 5 MG TABLETS PO SCH (22:39)
[2022-05-05] MEDS: THIAMINE HCL 100 MG TABLET (FP) PO SCH (23:09)
[2022-05-06] MEDS ORDERED: methaDONE HCL 10 MG TABLET ONE (04:44)
[2022-05-06] MEDS ORDERED: methaDONE HCL 40 MG DISPERSABLE TABLET ONE (04:44)
[2022-05-06] MEDS: GABAPENTIN 300 MG CAPSULE PO SCH ×2 (05:20→15:06)
[2022-05-06] MEDS: METHOCARBAMOL 500 MG TABLET PO PRN (05:20)
[2022-05-06] MEDS: hydrOXYzine PAMOATE 25 MG CAPSULE (FP) PO PRN (05:20)
[2022-05-06] MEDS: PROMETHAZINE HCL 25 MG TABLET PO PRN (05:21)
[2022-05-06] MEDS: cloNIDine HCL 0.1 MG TABLET PO PRN (05:58)
[2022-05-06 06:13] VITALS: TEMP 96.8
[2022-05-06 09:53] VITALS: BP 130/70; PULSE 63
[2022-05-06] MEDS: amLODIPine BESYLATE 10 MG TABLET (FP) PO SCH (11:09)
[2022-05-06] MEDS: BICTEGRAV/EMTRICIT/TENOFOV (BIKTARVY) 50-200-25 MG TABLET PO SCH (11:09)
[2022-05-06] MEDS: PRENATAL VITAMINS W/ FOLIC ACID TABLET (FP) PO SCH (11:09)
[2022-05-06] MEDS: FAMOTIDINE 20 MG TABLET PO SCH (11:09)
== END 2022-05-06 17:15 | disposition home or self-care (01) | DRG 773 ==
LOC: YASAS 14:22 → Y6N 05-02 12:24
PROVIDERS: ADMIT Allergy & Immunology; ATTEND Surgery
PROC: HZ2ZZZZ Detoxification Services for Substance Abuse Treatment (ICD-10-PCS; principal; 2022-05-02)
DX: F13.230 Sedative, hypnotic or anxiolytic dependence with withdrawal, uncomplicated (principal); F11.20 Opioid dependence, uncomplicated; F14.20 Cocaine dependence, uncomplicated; F12.20 Cannabis dependence, uncomplicated; F17.210 Nicotine dependence, cigarettes, uncomplicated; Z21 Asymptomatic human immunodeficiency virus [HIV] infection status; E87.6 Hypokalemia; J45.909 Unspecified asthma, uncomplicated; K21.9 Gastro-esophageal reflux disease without esophagitis; M41.9 Scoliosis, unspecified; M54.50 Low back pain, unspecified; G89.29 Other chronic pain; Z95.2 Presence of prosthetic heart valve
CPT/HCPCS: 36415; 80053; 84132; 85027; 86780; C9803-CS; J0735; Q0162; U0003; U0005

== ENCOUNTER 2023-10-01 12:33 | Inpatient (IN) | payer OTHER ==
[2023-10-01 13:46] VITALS: BMI 25.0
[2023-10-01] MEDS ORDERED: BENZONATATE 200 MG CAPSULE PO PRN (14:50)
[2023-10-01] MEDS ORDERED: guaiFENesin 600 MG TABLET.ER (FP) PO PRN (14:50)
[2023-10-01] MEDS ORDERED: BISMUTH SUBSALICYLATE 262 MG/15 ML BTL PO PRN (14:50)
[2023-10-01] MEDS ORDERED: NALOXONE HCL 0.4 MG/ML VIAL IM PRN (14:50)
[2023-10-01] MEDS ORDERED: ACETAMINOPHEN 325 MG TABLET (FP) PO PRN (14:50)
[2023-10-01] MEDS ORDERED: POLYETHYLENE GLYCOL (HEALTHYLAX) 3350 17 GM PACKET PO PRN (14:50)
[2023-10-01] MEDS ORDERED: ONDANSETRON *ODT* 4 MG TABLET SL PRN (14:50)
[2023-10-01] MEDS ORDERED: NALOXONE HCL (KLOXXADO) 8 MG SPRAY NS PRN (14:50)
[2023-10-01] MEDS ORDERED: LOPERAMIDE HCL 2 MG CAPSULE PO PRN (14:50)
[2023-10-01] MEDS ORDERED: BENZOCAINE/MENTHOL (CHLORASEPTIC ) LOZENGE MM PRN (14:50)
[2023-10-01] MEDS ORDERED: MAGNESIUM HYDROX 2400MG/30ML ORAL SUSPENSION 30 ML CUP PO PRN (14:50)
[2023-10-01] MEDS ORDERED: IBUPROFEN 400 MG TABLET (FP) PO PRN (14:50)
[2023-10-01] MEDS ORDERED: DICYCLOMINE HCL 10 MG CAPSULE PO PRN (14:50)
[2023-10-01] MEDS: MELATONIN 5 MG TABLETS PO SCH (22:54)
[2023-10-01] MEDS: THIAMINE HCL 100 MG TABLET (FP) PO SCH (22:54)
[2023-10-02] MEDS: hydrOXYzine PAMOATE 25 MG CAPSULE (FP) PO PRN ×2 (06:44→17:25)
[2023-10-02] MEDS: METHOCARBAMOL 500 MG TABLET PO PRN ×2 (06:44→17:25)
[2023-10-02] MEDS ORDERED: methaDONE HCL 10 MG TABLET PO SCH (07:45)
[2023-10-02] MEDS ORDERED: NICOTINE 7 MG/24 HOURS TOPICAL PATCH TD SCH (10:00)
[2023-10-02] MEDS ORDERED: TRIMETHOBENZAMIDE HCL 200MG/2ML INJ IM ONE (11:00)
[2023-10-02] MEDS: PRENATAL VITAMINS W/ FOLIC ACID TABLET (FP) PO SCH (11:03)
[2023-10-02] MEDS: NICOTINE 21 MG/24 HOURS TOPICAL PATCH TD SCH (11:03)
[2023-10-02] MEDS ORDERED: diazePAM 5 MG TABLET PO ONE (11:11)
[2023-10-02] MEDS ORDERED: diazePAM 5 MG TABLET PO PRN (11:11)
[2023-10-02] MEDS: diazePAM 5 MG TABLET PO SCH ×3 (11:33→22:30)
[2023-10-02] MEDS: MELATONIN 5 MG TABLETS PO SCH (22:20)
[2023-10-02] MEDS: THIAMINE HCL 100 MG TABLET (FP) PO SCH (22:20)
[2023-10-03] MEDS: diazePAM 5 MG TABLET PO SCH ×4 (05:41→22:50)
[2023-10-03] MEDS: PRENATAL VITAMINS W/ FOLIC ACID TABLET (FP) PO SCH (10:38)
[2023-10-03] MEDS: METHOCARBAMOL 500 MG TABLET PO PRN ×2 (10:38→17:15)
[2023-10-03] MEDS: IBUPROFEN 600 MG TABLET (FP) PO PRN ×2 (10:39→22:06)
[2023-10-03] MEDS: NICOTINE 21 MG/24 HOURS TOPICAL PATCH TD SCH (10:39)
[2023-10-03] MEDS ORDERED: ALBUTEROL SO4 HFA INHALER IH PRN (10:46)
[2023-10-03] MEDS: amLODIPine BESYLATE 10 MG TABLET (FP) PO SCH (11:21)
[2023-10-03] MEDS: BICTEGRAV/EMTRICIT/TENOFOV (BIKTARVY) 50-200-25 MG TABLET PO SCH (11:21)
[2023-10-03] MEDS: GABAPENTIN 300 MG CAPSULE PO SCH ×2 (13:35→22:07)
[2023-10-03] MEDS: hydrOXYzine PAMOATE 25 MG CAPSULE (FP) PO PRN (17:15)
[2023-10-03] MEDS: MELATONIN 5 MG TABLETS PO SCH (22:06)
[2023-10-03] MEDS: THIAMINE HCL 100 MG TABLET (FP) PO SCH (22:07)
[2023-10-04] MEDS: hydrOXYzine PAMOATE 25 MG CAPSULE (FP) PO PRN (03:12)
[2023-10-04] MEDS: METHOCARBAMOL 500 MG TABLET PO PRN ×3 (03:13→22:32)
[2023-10-04] MEDS: GABAPENTIN 300 MG CAPSULE PO SCH ×3 (05:22→22:32)
[2023-10-04] MEDS ORDERED: diazePAM 5 MG TABLET PO SCH (06:00)
[2023-10-04] MEDS: BICTEGRAV/EMTRICIT/TENOFOV (BIKTARVY) 50-200-25 MG TABLET PO SCH (09:20)
[2023-10-04] MEDS: amLODIPine BESYLATE 10 MG TABLET (FP) PO SCH (09:20)
[2023-10-04] MEDS: NICOTINE 21 MG/24 HOURS TOPICAL PATCH TD SCH (09:20)
[2023-10-04] MEDS: PRENATAL VITAMINS W/ FOLIC ACID TABLET (FP) PO SCH (09:20)
[2023-10-04] MEDS: LORazepam 1 MG TABLET PO SCH ×3 (11:22→22:32)
[2023-10-04] MEDS: cloNIDine HCL 0.1 MG TABLET PO PRN ×2 (17:26→22:42)
[2023-10-04] MEDS: THIAMINE HCL 100 MG TABLET (FP) PO SCH (22:32)
[2023-10-04] MEDS: MELATONIN 5 MG TABLETS PO SCH (22:32)
[2023-10-04] MEDS: IBUPROFEN 600 MG TABLET (FP) PO PRN (22:35)
[2023-10-05] MEDS ORDERED: LORazepam 0.5 MG TABLET PO PRN
[2023-10-05] MEDS: LORazepam 1 MG TABLET PO PRN ×3 (01:52→20:35)
[2023-10-05] MEDS: GABAPENTIN 300 MG CAPSULE PO SCH ×3 (05:27→22:52)
[2023-10-05] MEDS: LORazepam 0.5 MG TABLET PO SCH ×2 (05:27→10:20)
[2023-10-05] MEDS ORDERED: diazePAM 5 MG TABLET PO SCH (06:00)
[2023-10-05] MEDS: BICTEGRAV/EMTRICIT/TENOFOV (BIKTARVY) 50-200-25 MG TABLET PO SCH (10:18)
[2023-10-05] MEDS: NICOTINE 21 MG/24 HOURS TOPICAL PATCH TD SCH (10:18)
[2023-10-05] MEDS: PRENATAL VITAMINS W/ FOLIC ACID TABLET (FP) PO SCH (10:19)
[2023-10-05] MEDS: amLODIPine BESYLATE 10 MG TABLET (FP) PO SCH (10:19)
[2023-10-05] MEDS ORDERED: LORazepam 0.5 MG TABLET PO ONE (10:19)
[2023-10-05] MEDS: METHOCARBAMOL 500 MG TABLET PO PRN ×2 (10:19→17:42)
[2023-10-05] MEDS: hydrOXYzine PAMOATE 25 MG CAPSULE (FP) PO PRN (13:41)
[2023-10-05] MEDS: MAG HYDROX/AL HYDROX/SIMETH 30 ML UNIT-DOSE CUP PO PRN ×2 (16:14→22:55)
[2023-10-05] MEDS: LORazepam 1 MG TABLET PO SCH ×2 (17:40→22:53)
[2023-10-05] MEDS: IBUPROFEN 600 MG TABLET (FP) PO PRN (17:42)
[2023-10-05] MEDS: THIAMINE HCL 100 MG TABLET (FP) PO SCH (22:52)
[2023-10-05] MEDS: cloNIDine HCL 0.1 MG TABLET PO PRN (22:53)
[2023-10-05] MEDS: MELATONIN 5 MG TABLETS PO SCH (22:55)
[2023-10-06] MEDS: LORazepam 0.5 MG TABLET PO PRN ×2 (03:11→14:14)
[2023-10-06] MEDS ORDERED: LORazepam 0.5 MG TABLET PO ONE (05:00)
[2023-10-06] MEDS: LORazepam 0.5 MG TABLET PO SCH ×4 (05:34→22:28)
[2023-10-06] MEDS: GABAPENTIN 300 MG CAPSULE PO SCH ×3 (05:34→22:27)
[2023-10-06] MEDS ORDERED: diazePAM 5 MG TABLET PO ONE (06:00)
[2023-10-06] MEDS: cloNIDine HCL 0.1 MG TABLET PO PRN ×2 (06:45→22:30)
[2023-10-06] MEDS: BICTEGRAV/EMTRICIT/TENOFOV (BIKTARVY) 50-200-25 MG TABLET PO SCH (10:15)
[2023-10-06] MEDS: amLODIPine BESYLATE 10 MG TABLET (FP) PO SCH (10:15)
[2023-10-06] MEDS: NICOTINE 21 MG/24 HOURS TOPICAL PATCH TD SCH (10:15)
[2023-10-06] MEDS: METHOCARBAMOL 500 MG TABLET PO PRN ×2 (10:16→22:29)
[2023-10-06] MEDS: PRENATAL VITAMINS W/ FOLIC ACID TABLET (FP) PO SCH (10:16)
[2023-10-06] MEDS: IBUPROFEN 600 MG TABLET (FP) PO PRN (12:51)
[2023-10-06] MEDS: MAG HYDROX/AL HYDROX/SIMETH 30 ML UNIT-DOSE CUP PO PRN (17:07)
[2023-10-06 17:42] VITALS: RESP 18
[2023-10-06] MEDS: FAMOTIDINE 20 MG TABLET PO SCH (18:51)
[2023-10-06] MEDS: THIAMINE HCL 100 MG TABLET (FP) PO SCH (22:27)
[2023-10-06] MEDS: MELATONIN 5 MG TABLETS PO SCH (22:27)
[2023-10-07] MEDS: hydrOXYzine PAMOATE 25 MG CAPSULE (FP) PO PRN (01:35)
[2023-10-07] MEDS: IBUPROFEN 600 MG TABLET (FP) PO PRN (01:36)
[2023-10-07] MEDS ORDERED: LORazepam 0.5 MG TABLET PO ONE (05:00)
[2023-10-07] MEDS: GABAPENTIN 300 MG CAPSULE PO SCH (05:42)
[2023-10-07 09:10] VITALS: BP 118/73; PULSE 90; TEMP 97.8
[2023-10-07] MEDS: PRENATAL VITAMINS W/ FOLIC ACID TABLET (FP) PO SCH (10:50)
[2023-10-07] MEDS: BICTEGRAV/EMTRICIT/TENOFOV (BIKTARVY) 50-200-25 MG TABLET PO SCH (10:50)
[2023-10-07] MEDS: NICOTINE 21 MG/24 HOURS TOPICAL PATCH TD SCH (10:50)
[2023-10-07] MEDS: FAMOTIDINE 20 MG TABLET PO SCH (10:50)
[2023-10-07] MEDS: amLODIPine BESYLATE 10 MG TABLET (FP) PO SCH (10:50)
== END 2023-10-07 11:35 | disposition home or self-care (01) | DRG 773 ==
LOC: YASAS 12:33 → Y3N 15:14
PROVIDERS: ADMIT Allergy & Immunology; ATTEND Surgery
PROC: HZ2ZZZZ Detoxification Services for Substance Abuse Treatment (ICD-10-PCS; principal; 2023-10-01)
DX: F11.23 Opioid dependence with withdrawal (principal); F10.230 Alcohol dependence with withdrawal, uncomplicated; F13.230 Sedative, hypnotic or anxiolytic dependence with withdrawal, uncomplicated; F17.210 Nicotine dependence, cigarettes, uncomplicated; F19.24 Other psychoactive substance dependence with psychoactive substance-induced mood disorder; F43.10 Post-traumatic stress disorder, unspecified; Z21 Asymptomatic human immunodeficiency virus [HIV] infection status; K21.9 Gastro-esophageal reflux disease without esophagitis; M54.50 Low back pain, unspecified; G89.29 Other chronic pain; Z59.00 Homelessness unspecified; Z56.0 Unemployment, unspecified
CPT/HCPCS: 87635; 87811; 93005; 93010; Q0162

== ENCOUNTER 2024-02-15 13:28 | Inpatient (IN) | payer OTHER ==
[2024-02-15 15:29] VITALS: BMI 25.1
[2024-02-15] MEDS ORDERED: ACETAMINOPHEN 325 MG TABLET (FP) PO PRN (17:05)
[2024-02-15] MEDS ORDERED: ONDANSETRON *ODT* 4 MG TABLET SL PRN (17:05)
[2024-02-15] MEDS ORDERED: MAG HYDROX/AL HYDROX/SIMETH 30 ML UNIT-DOSE CUP PO PRN (17:05)
[2024-02-15] MEDS ORDERED: NALOXONE HCL (KLOXXADO) 8 MG SPRAY NS PRN (17:05)
[2024-02-15] MEDS ORDERED: POLYETHYLENE GLYCOL (HEALTHYLAX) 3350 17 GM PACKET PO PRN (17:05)
[2024-02-15] MEDS ORDERED: DICYCLOMINE HCL 10 MG CAPSULE PO PRN (17:05)
[2024-02-15] MEDS ORDERED: guaiFENesin 600 MG TABLET.ER (FP) PO PRN (17:05)
[2024-02-15] MEDS ORDERED: BENZONATATE 200 MG CAPSULE PO PRN (17:05)
[2024-02-15] MEDS ORDERED: BISMUTH SUBSALICYLATE 524 MG/30 ML PO PRN (17:05)
[2024-02-15] MEDS ORDERED: BENZOCAINE/MENTHOL (CHLORASEPTIC ) LOZENGE MM PRN (17:05)
[2024-02-15] MEDS ORDERED: LOPERAMIDE HCL 2 MG CAPSULE PO PRN (17:05)
[2024-02-15] MEDS ORDERED: NALOXONE HCL 0.4 MG/ML VIAL IM PRN (17:05)
[2024-02-15] MEDS ORDERED: MAGNESIUM HYDROX 2400MG/30ML ORAL SUSPENSION 30 ML CUP PO PRN (17:05)
[2024-02-15] MEDS ORDERED: ALBUTEROL SO4 HFA INHALER IH PRN (17:07)
[2024-02-15] MEDS ORDERED: amLODIPine BESYLATE 5 MG TABLET (FP) ONE (17:07)
[2024-02-15] MEDS: amLODIPine BESYLATE 5 MG TABLET (FP) PO SCH (17:24)
[2024-02-15] MEDS: BICTEGRAV/EMTRICIT/TENOFOV (BIKTARVY) 50-200-25 MG TABLET PO SCH (18:11)
[2024-02-15] MEDS: THIAMINE 100 MG TABLET PO SCH (22:40)
[2024-02-15] MEDS: METHOCARBAMOL 500 MG TABLET PO PRN (22:40)
[2024-02-15] MEDS: MELATONIN 5 MG TABLETS PO SCH (22:40)
[2024-02-15] MEDS: hydrOXYzine PAMOATE 25 MG CAPSULE (FP) PO PRN (22:40)
[2024-02-15] MEDS: METOPROLOL TARTRATE 50 MG TABLET (FP) PO ONE (23:31)
[2024-02-16] MEDS ORDERED: diazePAM 5 MG TABLET PO PRN (09:15)
[2024-02-16] MEDS: PRENATAL VITAMINS W/ FOLIC ACID TABLET (FP) PO SCH (09:44)
[2024-02-16] MEDS: methaDONE HCL 40 MG DISPERSABLE TABLET PO ONE (09:44)
[2024-02-16] MEDS: diazePAM 5 MG TABLET PO SCH (10:13)
[2024-02-16] MEDS: GABAPENTIN 300 MG CAPSULE PO SCH (13:35)
[2024-02-16] MEDS: LORazepam 1 MG TABLET PO PRN (17:35)
[2024-02-16] MEDS: IBUPROFEN 400 MG TABLET (FP) PO PRN (17:36)
[2024-02-17] MEDS: methaDONE HCL 40 MG DISPERSABLE TABLET PO SCH (05:38)
[2024-02-17] MEDS: IBUPROFEN 600 MG TABLET (FP) PO PRN (10:32)
[2024-02-17] MEDS: LORazepam 1 MG TABLET PO SCH (17:43)
[2024-02-18] MEDS ORDERED: diazePAM 5 MG TABLET PO SCH (06:00)
[2024-02-18] MEDS: LORazepam 0.5 MG TABLET PO SCH (17:43)
[2024-02-19] MEDS ORDERED: diazePAM 5 MG TABLET PO SCH (06:00)
[2024-02-19] MEDS: LORazepam 0.5 MG TABLET PO ONE (17:23)
[2024-02-19 20:51] VITALS: RESP 17
[2024-02-19] MEDS: LORazepam 0.5 MG TABLET PO PRN (23:16)
[2024-02-19] MEDS: SUVOREXANT 10 MG TABLET PO PRN (23:17)
[2024-02-20] MEDS: LORazepam 0.5 MG TABLET PO ONE (05:17)
[2024-02-20] MEDS ORDERED: diazePAM 5 MG TABLET PO ONE (06:00)
[2024-02-20 10:21] VITALS: BP 146/83; PULSE 97; TEMP 97.5
== END 2024-02-20 09:32 | disposition home or self-care (01) | DRG 773 ==
LOC: YASAS 13:28 → Y6N 17:01
PROVIDERS: ADMIT Allergy & Immunology; ATTEND Surgery
PROC: HZ2ZZZZ Detoxification Services for Substance Abuse Treatment (ICD-10-PCS; principal; 2024-02-15)
DX: F13.230 Sedative, hypnotic or anxiolytic dependence with withdrawal, uncomplicated (principal); F11.20 Opioid dependence, uncomplicated; F14.20 Cocaine dependence, uncomplicated; F12.20 Cannabis dependence, uncomplicated; F17.210 Nicotine dependence, cigarettes, uncomplicated; F19.282 Other psychoactive substance dependence with psychoactive substance-induced sleep disorder; Z21 Asymptomatic human immunodeficiency virus [HIV] infection status; I10 Essential (primary) hypertension; J45.20 Mild intermittent asthma, uncomplicated; K21.9 Gastro-esophageal reflux disease without esophagitis; M79.2 Neuralgia and neuritis, unspecified; M41.9 Scoliosis, unspecified; M54.50 Low back pain, unspecified; G89.29 Other chronic pain; Z79.899 Other long term (current) drug therapy
CPT/HCPCS: 71045-TC-FY; 93005; 93010

== ENCOUNTER 2024-03-22 12:04 | Inpatient (IN) | payer OTHER ==
[2024-03-22 12:40] VITALS: BMI 23.4
[2024-03-22] MEDS ORDERED: NICOTINE POLACRILEX 2 MG GUM BUC PRN (13:26)
[2024-03-22] MEDS ORDERED: BENZOCAINE/MENTHOL (CHLORASEPTIC ) LOZENGE MM PRN (13:26)
[2024-03-22] MEDS ORDERED: MAGNESIUM HYDROX 2400MG/30ML ORAL SUSPENSION 30 ML CUP PO PRN (13:26)
[2024-03-22] MEDS ORDERED: BISMUTH SUBSALICYLATE 262 MG/15 ML BTL PO PRN (13:26)
[2024-03-22] MEDS ORDERED: IBUPROFEN 400 MG TABLET (FP) PO PRN (13:26)
[2024-03-22] MEDS ORDERED: LORazepam 1 MG TABLET PO PRN (13:26)
[2024-03-22] MEDS ORDERED: DICYCLOMINE HCL 10 MG CAPSULE PO PRN (13:26)
[2024-03-22] MEDS ORDERED: ONDANSETRON *ODT* 4 MG TABLET SL PRN (13:26)
[2024-03-22] MEDS ORDERED: ACETAMINOPHEN 325 MG TABLET (FP) PO PRN (13:26)
[2024-03-22] MEDS ORDERED: BENZONATATE 200 MG CAPSULE PO PRN (13:26)
[2024-03-22] MEDS ORDERED: POLYETHYLENE GLYCOL (HEALTHYLAX) 3350 17 GM PACKET PO PRN (13:26)
[2024-03-22] MEDS ORDERED: NICOTINE POLACRILEX 2 MG LOZENGE BC PRN (13:26)
[2024-03-22] MEDS ORDERED: NALOXONE HCL (KLOXXADO) 8 MG SPRAY NS PRN (13:26)
[2024-03-22] MEDS ORDERED: MAG HYDROX/AL HYDROX/SIMETH 30 ML UNIT-DOSE CUP PO PRN (13:26)
[2024-03-22] MEDS ORDERED: LOPERAMIDE HCL 2 MG CAPSULE PO PRN (13:26)
[2024-03-22] MEDS ORDERED: NALOXONE HCL 0.4 MG/ML VIAL IM PRN (13:26)
[2024-03-22] MEDS ORDERED: ALBUTEROL SO4 HFA INHALER IH PRN (13:28)
[2024-03-22] MEDS: GABAPENTIN 300 MG CAPSULE PO SCH (14:20)
[2024-03-22] MEDS: amLODIPine BESYLATE 10 MG TABLET (FP) PO SCH (14:20)
[2024-03-22] MEDS: BICTEGRAV/EMTRICIT/TENOFOV (BIKTARVY) 50-200-25 MG TABLET PO SCH (14:20)
[2024-03-22] MEDS: LORazepam 2 MG TABLET PO SCH (17:53)
[2024-03-22] MEDS: MELATONIN 5 MG TABLETS PO SCH (22:56)
[2024-03-22] MEDS: THIAMINE 100 MG TABLET PO SCH (22:56)
[2024-03-22] MEDS: METHOCARBAMOL 500 MG TABLET PO PRN (22:56)
[2024-03-23] MEDS ORDERED: methaDONE HCL 10 MG TABLET PO SCH (06:00)
[2024-03-23] MEDS: guaiFENesin 600 MG TABLET.ER (FP) PO PRN (09:46)
[2024-03-23] MEDS: NICOTINE 14 MG/24 HOURS TOPICAL PATCH TD SCH (09:46)
[2024-03-23] MEDS: PRENATAL VITAMINS W/ FOLIC ACID TABLET (FP) PO SCH (09:46)
[2024-03-23 12:08] LABS: HEMATOCRIT 35.8 % (35.4-49); HEMOGLOBIN 11.5 GM/dL (11.7-16.9); MCH 27.4 pg (25.7-33.7); MEAN CELL VOLUME 85.6 fl (80-96); MEAN PLT VOLUME 7.9 fl (7.5-11.1); PLATELET COUNT 244 10^3/uL (134-434); RBC 4.18 M/mm3 (4.00-5.60); RDW 14.7 % (11.9-15.9); WHITE BLOOD COUNT 6.8 K/mm3 (4.0-10.0)
[2024-03-23 12:14] LABS: ALBUMIN 2.9 g/dl (3.4-5.0); BLOOD UREA NITROGEN 9.3 mg/dL (7-18); CALCIUM 9.1 mg/dL (8.5-10.1)
[2024-03-23 12:16] LABS: CREATININE 0.8 mg/dL (0.55-1.3)
[2024-03-23 12:19] LABS: BILIRUBIN,TOTAL 0.9 mg/dL (0.2-1); TOT PROT 7.4 g/dl (6.4-8.2)
[2024-03-23] MEDS: IBUPROFEN 600 MG TABLET (FP) PO PRN (18:07)
[2024-03-23] MEDS: LORazepam 2 MG TABLET PO SCH (18:11)
[2024-03-23] MEDS: BACITRACIN 0.9 GM PACKET TP ONE (19:27)
[2024-03-24] MEDS: LORazepam 1 MG TABLET PO SCH (05:35)
[2024-03-25] MEDS ORDERED: LORazepam 0.5 MG TABLET PO PRN
[2024-03-25] MEDS: hydrOXYzine PAMOATE 25 MG CAPSULE (FP) PO PRN (02:48)
[2024-03-25] MEDS: LORazepam 0.5 MG TABLET PO SCH (05:16)
[2024-03-26] MEDS: LORazepam 0.5 MG TABLET PO ONE ×2 (05:18→13:31)
[2024-03-27 06:41] VITALS: RESP 16
[2024-03-27 09:22] VITALS: PULSE 89; TEMP 98.9
[2024-03-27 09:23] VITALS: BP 138/85
== END 2024-03-27 12:50 | disposition home or self-care (01) | DRG 773 ==
LOC: YASAS 12:04 → Y6N 13:40
PROVIDERS: ADMIT Allergy & Immunology; ATTEND Surgery
PROC: HZ2ZZZZ Detoxification Services for Substance Abuse Treatment (ICD-10-PCS; principal; 2024-03-22)
DX: F10.230 Alcohol dependence with withdrawal, uncomplicated (principal); F13.230 Sedative, hypnotic or anxiolytic dependence with withdrawal, uncomplicated; F11.20 Opioid dependence, uncomplicated; F14.20 Cocaine dependence, uncomplicated; F12.20 Cannabis dependence, uncomplicated; F17.210 Nicotine dependence, cigarettes, uncomplicated; F32.A Depression, unspecified; F41.9 Anxiety disorder, unspecified; Z21 Asymptomatic human immunodeficiency virus [HIV] infection status; I10 Essential (primary) hypertension; J45.20 Mild intermittent asthma, uncomplicated; M79.2 Neuralgia and neuritis, unspecified; Z79.899 Other long term (current) drug therapy; Z59.01 Sheltered homelessness
CPT/HCPCS: 36415; 80053; 80305; 80307; 82550; 82553; 84484; 85027; 86780; 93005; 93010

== ENCOUNTER 2024-05-17 15:52 | Inpatient (IN) | payer OTHER ==
[2024-05-17 17:04] VITALS: BMI 25.2
[2024-05-17] MEDS ORDERED: MAGNESIUM HYDROX 2400MG/30ML ORAL SUSPENSION 30 ML CUP PO PRN (18:00)
[2024-05-17] MEDS ORDERED: NICOTINE POLACRILEX 2 MG LOZENGE BC PRN (18:00)
[2024-05-17] MEDS ORDERED: DICYCLOMINE HCL 10 MG CAPSULE PO PRN (18:00)
[2024-05-17] MEDS ORDERED: NICOTINE POLACRILEX 2 MG GUM BUC PRN (18:00)
[2024-05-17] MEDS ORDERED: NALOXONE (NARCAN) HCL 4 MG/0.1 ML SPRAY NS PRN (18:00)
[2024-05-17] MEDS ORDERED: P-EPHED 60MG/TRIPROLIDI 2.5MG TABLET PO PRN (18:00)
[2024-05-17] MEDS ORDERED: hydrOXYzine PAMOATE 25 MG CAPSULE (FP) PO PRN (18:00)
[2024-05-17] MEDS ORDERED: POLYETHYLENE GLYCOL (HEALTHYLAX) 3350 17 GM PACKET PO PRN (18:00)
[2024-05-17] MEDS ORDERED: IBUPROFEN 400 MG TABLET (FP) PO PRN (18:00)
[2024-05-17] MEDS ORDERED: BENZONATATE 200 MG CAPSULE PO PRN (18:00)
[2024-05-17] MEDS ORDERED: ACETAMINOPHEN 325 MG TABLET (FP) PO PRN (18:00)
[2024-05-17] MEDS ORDERED: LOPERAMIDE HCL 2 MG CAPSULE PO PRN (18:00)
[2024-05-17] MEDS ORDERED: guaiFENesin 600 MG TABLET.ER (FP) PO PRN (18:00)
[2024-05-17] MEDS ORDERED: BISMUTH SUBSALICYLATE 524 MG/30 ML PO PRN (18:00)
[2024-05-17] MEDS ORDERED: ONDANSETRON *ODT* 4 MG TABLET SL PRN (18:00)
[2024-05-17] MEDS ORDERED: NALOXONE HCL 0.4 MG/ML VIAL IM PRN (18:00)
[2024-05-17] MEDS ORDERED: diazePAM 5 MG TABLET PO PRN (18:03)
[2024-05-17] MEDS ORDERED: ALBUTEROL SO4 HFA INHALER IH PRN (18:09)
[2024-05-17] MEDS: BENZOCAINE/MENTHOL (CHLORASEPTIC ) LOZENGE MM PRN (20:05)
[2024-05-17] MEDS: METHOCARBAMOL 500 MG TABLET PO PRN (21:29)
[2024-05-17] MEDS: THIAMINE 100 MG TABLET PO SCH (21:29)
[2024-05-17] MEDS: MELATONIN 5 MG TABLETS PO SCH (21:29)
[2024-05-17] MEDS: SULFAMETHOXAZOLE/TRIMETHOPRIM 800MG/160MG D.S. TABLET PO SCH (21:29)
[2024-05-17] MEDS: IBUPROFEN 600 MG TABLET (FP) PO PRN (21:31)
[2024-05-17] MEDS ORDERED: DOCUSATE SODIUM 100 MG CAPSULE (FP) PO PRN (22:00)
[2024-05-17] MEDS: LORazepam 2 MG TABLET PO SCH (22:32)
[2024-05-17] MEDS ORDERED: diazePAM 5 MG TABLET PO SCH (23:00)
[2024-05-18] MEDS: LORazepam 1 MG TABLET PO SCH (05:58)
[2024-05-18] MEDS: BICTEGRAV/EMTRICIT/TENOFOV (BIKTARVY) 50-200-25 MG TABLET PO SCH (09:00)
[2024-05-18] MEDS ORDERED: methaDONE HCL 10 MG TABLET PO SCH (09:15)
[2024-05-18] MEDS: amLODIPine BESYLATE 10 MG TABLET (FP) PO SCH (10:02)
[2024-05-18] MEDS: PRENATAL VITAMINS W/ FOLIC ACID TABLET (FP) PO SCH (10:02)
[2024-05-18] MEDS: cloNIDine HCL 0.1 MG TABLET PO PRN (13:30)
[2024-05-18] MEDS: LORazepam 1 MG TABLET PO PRN (22:20)
[2024-05-19] MEDS: LORazepam 0.5 MG TABLET PO SCH (05:43)
[2024-05-19] MEDS ORDERED: diazePAM 5 MG TABLET PO SCH (06:00)
[2024-05-19] MEDS: GABAPENTIN 300 MG CAPSULE PO SCH (12:10)
[2024-05-19] MEDS: PROMETHAZINE HCL 25 MG TABLET PO PRN (15:41)
[2024-05-20] MEDS: LORazepam 0.5 MG TABLET PO PRN (01:26)
[2024-05-20] MEDS: LORazepam 0.5 MG TABLET PO ONE (05:32)
[2024-05-20] MEDS ORDERED: diazePAM 5 MG TABLET PO SCH (06:00)
[2024-05-21] MEDS ORDERED: diazePAM 5 MG TABLET PO ONE (06:00)
[2024-05-21] MEDS: MAG HYDROX/AL HYDROX/SIMETH 30 ML UNIT-DOSE CUP PO PRN (10:30)
[2024-05-22 09:02] VITALS: BP 136/81; PULSE 85; RESP 16; TEMP 97.7
== END 2024-05-22 12:02 | disposition home or self-care (01) | DRG 773 ==
LOC: YASAS 15:52 → Y3N 19:41
PROVIDERS: ADMIT Allergy & Immunology; ATTEND Surgery
PROC: HZ2ZZZZ Detoxification Services for Substance Abuse Treatment (ICD-10-PCS; principal; 2024-05-17)
DX: F10.230 Alcohol dependence with withdrawal, uncomplicated (principal); F11.20 Opioid dependence, uncomplicated; F14.20 Cocaine dependence, uncomplicated; F12.20 Cannabis dependence, uncomplicated; F17.210 Nicotine dependence, cigarettes, uncomplicated; F19.21 Other psychoactive substance dependence, in remission; Z21 Asymptomatic human immunodeficiency virus [HIV] infection status; I10 Essential (primary) hypertension; J45.20 Mild intermittent asthma, uncomplicated; M79.2 Neuralgia and neuritis, unspecified; Z79.899 Other long term (current) drug therapy
CPT/HCPCS: 80305; 93005; 93010

== ENCOUNTER 2024-08-03 11:59 | Inpatient (IN) | payer OTHER ==
[2024-08-03 12:30] VITALS: BMI 22.6
[2024-08-03] MEDS ORDERED: NICOTINE POLACRILEX 2 MG LOZENGE BC PRN (14:01)
[2024-08-03] MEDS ORDERED: NALOXONE (NARCAN) HCL 4 MG/0.1 ML SPRAY NS PRN (14:01)
[2024-08-03] MEDS ORDERED: BISMUTH SUBSALICYLATE 524 MG/30 ML PO PRN (14:01)
[2024-08-03] MEDS ORDERED: LOPERAMIDE HCL 2 MG CAPSULE PO PRN (14:01)
[2024-08-03] MEDS ORDERED: guaiFENesin 600 MG TABLET.ER (FP) PO PRN (14:01)
[2024-08-03] MEDS ORDERED: POLYETHYLENE GLYCOL (HEALTHYLAX) 3350 17 GM PACKET PO PRN (14:01)
[2024-08-03] MEDS ORDERED: MAG HYDROX/AL HYDROX/SIMETH 30 ML UNIT-DOSE CUP PO PRN (14:01)
[2024-08-03] MEDS ORDERED: ONDANSETRON *ODT* 4 MG TABLET SL PRN (14:01)
[2024-08-03] MEDS ORDERED: NALOXONE (NYS OPIOID OVERDOSE PROGRAM) 4 MG/0.1 ML SPRAY NS PRN (14:01)
[2024-08-03] MEDS ORDERED: BENZONATATE 200 MG CAPSULE PO PRN (14:01)
[2024-08-03] MEDS ORDERED: DICYCLOMINE HCL 10 MG CAPSULE PO PRN (14:01)
[2024-08-03] MEDS ORDERED: MAGNESIUM HYDROX 2400MG/30ML ORAL SUSPENSION 30 ML CUP PO PRN (14:01)
[2024-08-03] MEDS ORDERED: ALBUTEROL SO4 HFA INHALER IH PRN (17:01)
[2024-08-03] MEDS ORDERED: diazePAM 5 MG TABLET PO PRN (23:36)
[2024-08-03] MEDS: MELATONIN 5 MG TABLETS PO SCH (23:45)
[2024-08-03] MEDS: THIAMINE 100 MG TABLET PO SCH (23:45)
[2024-08-03] MEDS: diazePAM 5 MG TABLET PO SCH (23:56)
[2024-08-04] MEDS: IBUPROFEN 400 MG TABLET (FP) PO PRN (00:03)
[2024-08-04] MEDS: NICOTINE 14 MG/24 HOURS TOPICAL PATCH TD SCH (10:35)
[2024-08-04] MEDS: amLODIPine BESYLATE 10 MG TABLET (FP) PO SCH (10:35)
[2024-08-04] MEDS: PRENATAL VITAMINS W/ FOLIC ACID TABLET (FP) PO SCH (10:35)
[2024-08-04] MEDS: BICTEGRAV/EMTRICIT/TENOFOV (BIKTARVY) 50-200-25 MG TABLET PO SCH (10:36)
[2024-08-04] MEDS: IBUPROFEN 600 MG TABLET (FP) PO PRN (10:36)
[2024-08-04] MEDS ORDERED: methaDONE HCL 10 MG TABLET PO SCH (11:15)
[2024-08-04 14:33] LABS: HEMOGLOBIN 12.6 GM/dL (11.7-16.9); MCH 27.2 pg (25.7-33.7); MCHC 32.3 g/dl (32.0-35.9); MEAN CELL VOLUME 84.3 fl (80-96); PLATELET COUNT 218 10^3/uL (134-434); RBC 4.63 M/mm3 (4.00-5.60); RDW 15.5 % (11.9-15.9); WHITE BLOOD COUNT 3.5 K/mm3 (4.0-10.0)
[2024-08-04 15:18] LABS: POTASSIUM 3.6 mmol/L (3.5-5.1)
[2024-08-04 15:24] LABS: CALCIUM 9.3 mg/dL (8.5-10.1)
[2024-08-04 15:25] LABS: ALBUMIN 3.6 g/dl (3.4-5.0)
[2024-08-04 15:29] LABS: BILIRUBIN,TOTAL 0.7 mg/dL (0.2-1)
[2024-08-04 15:30] LABS: TOT PROT 8.4 g/dl (6.4-8.2)
[2024-08-04] MEDS: LORazepam 2 MG TABLET PO SCH (17:45)
[2024-08-04] MEDS: METHOCARBAMOL 500 MG TABLET PO PRN (22:35)
[2024-08-05] MEDS: LORazepam 1 MG TABLET PO SCH (05:36)
[2024-08-05] MEDS ORDERED: diazePAM 5 MG TABLET PO SCH (06:00)
[2024-08-05] MEDS: LORazepam 1 MG TABLET PO PRN (20:04)
[2024-08-05] MEDS: hydrOXYzine PAMOATE 25 MG CAPSULE (FP) PO PRN (23:27)
[2024-08-06] MEDS ORDERED: LORazepam 0.5 MG TABLET PO PRN
[2024-08-06] MEDS: LORazepam 0.5 MG TABLET PO SCH (05:50)
[2024-08-06] MEDS ORDERED: diazePAM 5 MG TABLET PO SCH (06:00)
[2024-08-06] MEDS: BENZOCAINE/MENTHOL (CHLORASEPTIC ) LOZENGE MM PRN (17:54)
[2024-08-07] MEDS ORDERED: diazePAM 5 MG TABLET PO ONE (06:00)
[2024-08-07] MEDS: LORazepam 0.5 MG TABLET PO ONE (06:00)
[2024-08-07] MEDS: LORazepam 0.5 MG TABLET PO SCH (14:05)
[2024-08-07] MEDS: ACETAMINOPHEN 325 MG TABLET (FP) PO PRN (21:16)
[2024-08-08] MEDS: LORazepam 0.5 MG TABLET PO ONE (05:58)
[2024-08-08 06:41] VITALS: RESP 16
[2024-08-08 09:56] VITALS: BP 130/85; PULSE 85; TEMP 98.9
== END 2024-08-08 10:15 | disposition home or self-care (01) | DRG 773 ==
LOC: YASAS 11:59 → Y3N 14:34
PROVIDERS: ADMIT Allergy & Immunology; ATTEND Surgery
PROC: HZ2ZZZZ Detoxification Services for Substance Abuse Treatment (ICD-10-PCS; principal; 2024-08-03)
DX: F10.230 Alcohol dependence with withdrawal, uncomplicated (principal); F13.230 Sedative, hypnotic or anxiolytic dependence with withdrawal, uncomplicated; F11.20 Opioid dependence, uncomplicated; F14.20 Cocaine dependence, uncomplicated; F12.20 Cannabis dependence, uncomplicated; F17.210 Nicotine dependence, cigarettes, uncomplicated; F19.24 Other psychoactive substance dependence with psychoactive substance-induced mood disorder; F41.8 Other specified anxiety disorders; F43.10 Post-traumatic stress disorder, unspecified; Z21 Asymptomatic human immunodeficiency virus [HIV] infection status; I10 Essential (primary) hypertension; M79.2 Neuralgia and neuritis, unspecified
CPT/HCPCS: 36415; 80053; 80305; 80307; 85027; 86780; 93005; 93010

== ENCOUNTER 2025-01-10 12:28 | Inpatient (IN) | payer OTHER ==
[2025-01-10] MEDS ORDERED: ALBUTEROL SO4 HFA INHALER IH PRN (12:53)
[2025-01-10] MEDS ORDERED: guaiFENesin 600 MG TABLET.ER (FP) PO PRN (12:55)
[2025-01-10] MEDS ORDERED: DICYCLOMINE HCL 10 MG CAPSULE PO PRN (12:55)
[2025-01-10] MEDS ORDERED: NALOXONE (NARCAN) HCL 4 MG/0.1 ML SPRAY NS PRN (12:55)
[2025-01-10] MEDS ORDERED: POLYETHYLENE GLYCOL (HEALTHYLAX) 3350 17 GM PACKET PO PRN (12:55)
[2025-01-10] MEDS ORDERED: LOPERAMIDE HCL 2 MG CAPSULE PO PRN (12:55)
[2025-01-10] MEDS ORDERED: BISMUTH SUBSALICYLATE 262 MG/15 ML BTL PO PRN (12:55)
[2025-01-10] MEDS ORDERED: NICOTINE POLACRILEX 2 MG GUM BUC PRN (12:55)
[2025-01-10] MEDS ORDERED: BENZONATATE 200 MG CAPSULE PO PRN (12:55)
[2025-01-10] MEDS ORDERED: MAGNESIUM HYDROX 2400MG/30ML ORAL SUSPENSION 30 ML CUP PO PRN (12:55)
[2025-01-10] MEDS ORDERED: MAG HYDROX/AL HYDROX/SIMETH 30 ML UNIT-DOSE CUP PO PRN (12:55)
[2025-01-10] MEDS ORDERED: IBUPROFEN 400 MG TABLET (FP) PO PRN (12:55)
[2025-01-10] MEDS ORDERED: ONDANSETRON *ODT* 4 MG TABLET SL PRN (12:55)
[2025-01-10 13:04] VITALS: BMI 20.9
[2025-01-10] MEDS ORDERED: amLODIPine BESYLATE 5 MG TABLET (FP) ONE (13:50)
[2025-01-10] MEDS: amLODIPine BESYLATE 10 MG TABLET (FP) PO SCH (13:56)
[2025-01-10] MEDS: LORATADINE 10 MG TABLET PO SCH (14:50)
[2025-01-10] MEDS: LORazepam 1 MG TABLET PO PRN (15:01)
[2025-01-10] MEDS: METHOCARBAMOL 500 MG TABLET PO PRN (15:01)
[2025-01-10] MEDS: hydrOXYzine PAMOATE 25 MG CAPSULE (FP) PO PRN (15:01)
[2025-01-10] MEDS: LORazepam 2 MG TABLET PO SCH (17:13)
[2025-01-10] MEDS: THIAMINE 100 MG TABLET PO SCH (22:55)
[2025-01-10] MEDS: MELATONIN 5 MG TABLETS PO SCH (22:55)
[2025-01-11] MEDS: ACETAMINOPHEN 325 MG TABLET (FP) PO PRN (05:48)
[2025-01-11] MEDS ORDERED: methaDONE HCL 40 MG DISPERSABLE TABLET PO SCH (06:00)
[2025-01-11] MEDS: BICTEGRAV/EMTRICIT/TENOFOV (BIKTARVY) 50-200-25 MG TABLET PO SCH (07:11)
[2025-01-11] MEDS: PRENATAL VITAMINS W/ FOLIC ACID TABLET (FP) PO SCH (09:08)
[2025-01-11] MEDS: IBUPROFEN 600 MG TABLET (FP) PO PRN (09:08)
[2025-01-11 10:54] LABS: HEMATOCRIT 35.4 % (40.1-51.0); HEMOGLOBIN 10.7 g/dL (13.7-17.5); MCHC 30.2 g/dl (32.3-36.5); MEAN CELL VOLUME 88.5 fl (79.0-92.2); MEAN PLT VOLUME 10.6 fl (9.4-12.4); PLATELET COUNT # 190 x10^3/uL (163-337)
[2025-01-11 11:15] LABS: ALBUMIN 3.2 g/dl (3.4-5.0); BLOOD UREA NITROGEN 10.8 mg/dL (7-18); CALCIUM 8.9 mg/dL (8.5-10.1)
[2025-01-11 11:18] LABS: CREATININE 1.1 mg/dL (0.55-1.3)
[2025-01-11 11:20] LABS: BILIRUBIN,TOTAL 0.5 mg/dL (0.2-1); TOT PROT 7.4 g/dl (6.4-8.2)
[2025-01-12] MEDS: LORazepam 1 MG TABLET PO SCH (05:48)
[2025-01-13] MEDS: LORazepam 0.5 MG TABLET PO PRN (01:34)
[2025-01-13] MEDS: LORazepam 0.5 MG TABLET PO SCH (05:56)
[2025-01-13] MEDS: BENZOCAINE/MENTHOL (CHLORASEPTIC ) LOZENGE MM PRN (06:01)
[2025-01-13] MEDS: cloNIDine HCL 0.1 MG TABLET PO ONE (22:16)
[2025-01-14] MEDS: LORazepam 0.5 MG TABLET PO ONE (05:43)
[2025-01-15 13:43] VITALS: BP 142/92; PULSE 91; RESP 18; TEMP 97.7
== END 2025-01-15 13:45 | disposition home or self-care (01) | DRG 773 ==
LOC: YASAS 12:28 → Y3N 14:00 → Y6N 01-13 22:32
PROVIDERS: ADMIT Allergy & Immunology; ATTEND Allergy & Immunology
PROC: HZ2ZZZZ Detoxification Services for Substance Abuse Treatment (ICD-10-PCS; principal; 2025-01-10)
DX: F11.20 Opioid dependence, uncomplicated (principal); F13.230 Sedative, hypnotic or anxiolytic dependence with withdrawal, uncomplicated; F14.20 Cocaine dependence, uncomplicated; F15.20 Other stimulant dependence, uncomplicated; F12.20 Cannabis dependence, uncomplicated; F17.210 Nicotine dependence, cigarettes, uncomplicated; F19.24 Other psychoactive substance dependence with psychoactive substance-induced mood disorder; F43.10 Post-traumatic stress disorder, unspecified; Z21 Asymptomatic human immunodeficiency virus [HIV] infection status; I10 Essential (primary) hypertension; J45.20 Mild intermittent asthma, uncomplicated; R63.6 Underweight; Z68.20 Body mass index [BMI] 20.0-20.9, adult; Z79.899 Other long term (current) drug therapy
CPT/HCPCS: 36415; 73140-TC-LT-FY; 80053; 80305; 80307; 82550; 82553; 84484; 85027; 86780; 93005; 93010

== ENCOUNTER 2025-04-21 16:25 | Inpatient (IN) | payer OTHER ==
[2025-04-21] MEDS: SODIUM CHLORIDE 1,000 ML IV STA (17:42)
[2025-04-21 17:46] LABS: ABSOLUTE IMMATURE GRANULOCYTES 0.02 x10^3/uL (0.0-0.031); BASOPHILS # 0.00 x10^3/uL (0.01-0.08); EOSINOPHIL % 0.0 % (0.8-7.0); EOSINOPHILS # 0.00 x10^3/uL (0.04-0.54); MCHC 30.8 g/dl (32.3-36.5); MEAN CELL VOLUME 87.0 fl (79.0-92.2); MEAN PLT VOLUME 11.5 fl (9.4-12.4); MONOCYTE # 0.19 x10^3/uL (0.30-0.82); MONOCYTE % 2.7 % (5.3-12.2); RDW 14.2 % (12.1-15.9)
[2025-04-21 18:08] LABS: CO2 27 mmol/L (21-32); GLUCOSE,RANDOM 130 mg/dL (74-106)
[2025-04-21 18:11] LABS: CREATININE 0.9 mg/dL (0.55-1.3)
[2025-04-21 18:12] LABS: TOT PROT 8.3 g/dl (6.4-8.2)
[2025-04-21 18:14] LABS: ALK PHOS 92 U/L (45-117)
[2025-04-21 18:31] LABS: SGOT/AST 124 U/L (15-37); SGPT/ALT 36 U/L (13-61)
[2025-04-21 18:33] LABS: EPI CELLS 7 /uL (0-25.1); HYALINE CASTS 0 /uL (0-3.1); URINE APPEARANCE CLEAR; URINE BACTERIA 28 /uL (0-1359); URINE BILIRUBIN NEGATIVE (NEGATIVE); URINE COLOR YELLOW; URINE GLUCOSE (UA) NEGATIVE (NEGATIVE); URINE KETONE NEGATIVE (NEGATIVE); URINE LEUK ESTERASE NEGATIVE (NEGATIVE); URINE NITRITE NEGATIVE (NEGATIVE); URINE PROTEIN 1+ (NEGATIVE); URINE RBC 15 /uL (0-23.9); URINE UROBILINOGEN 1.0 mg/dL (0.2-1.0); URINE WBC 6 /uL (0-25.8)
[2025-04-21] MEDS ORDERED: amLODIPine BESYLATE 10 MG TABLET (FP) ONE (20:22)
[2025-04-21] MEDS: amLODIPine BESYLATE 10 MG TABLET (FP) PO ONE (20:33)
[2025-04-21 20:53] LABS: CO2 28.0 mmol/L (21-32); GLUCOSE,RANDOM 114.0 mg/dL (74-106)
[2025-04-21 20:56] LABS: CREATININE 0.9 mg/dL (0.55-1.3); SGPT/ALT 30.0 U/L (13-61)
[2025-04-21 20:57] LABS: SGOT/AST 30.0 U/L (15-37)
[2025-04-21 20:58] LABS: TOT PROT 8.6 g/dl (6.4-8.2)
[2025-04-21 20:59] LABS: ALK PHOS 108.0 U/L (45-117)
[2025-04-21] MEDS ORDERED: MAGNESIUM 1GM/D5W - 1 GM/100 ML IVPB IVPB ONE (21:08)
[2025-04-21] MEDS: MAGNESIUM 1GM/D5W - 1 GM/100 ML IVPB IVPB ONE (21:16)
[2025-04-22] MEDS: SODIUM CHLORIDE 1,000 ML IV SCH (04:04)
[2025-04-22] MEDS ORDERED: ALBUTEROL SO4 HFA INHALER IH PRN ×2 (04:24→21:09)
[2025-04-22] MEDS ORDERED: LORATADINE 10 MG TABLET PO PRN (04:24)
[2025-04-22] MEDS ORDERED: TRIMETHOBENZAMIDE HCL 200MG/2ML INJ IM ONE (05:27)
[2025-04-22] MEDS: TRIMETHOBENZAMIDE HCL 200MG/2ML INJ IM PRN (05:49)
[2025-04-22] MEDS: ACETAMINOPHEN 1000 MG/100 ML BAG IVPB PRN (05:49)
[2025-04-22] MEDS: LABETALOL HCL 20 MG/4 ML VIAL IVPUSH ONE (05:49)
[2025-04-22] MEDS: LOSARTAN POTASSIUM 50 MG TABLET PO SCH (06:04)
[2025-04-22] MEDS: LACTATED RINGERS SOLUTION 1,000 ML/1,000 ML INFUS.BAG IV SCH (07:13)
[2025-04-22] MEDS ORDERED: BICTEGRAV/EMTRICIT/TENOFOV (BIKTARVY) 50-200-25 MG TABLET PO SCH (08:00)
[2025-04-22] MEDS ORDERED: ONDANSETRON 4 MG/2 ML VIAL IVPUSH PRN (08:09)
[2025-04-22] MEDS: BICTEGRAV/EMTRICIT/TENOFOV (BIKTARVY) 50-200-25 MG TABLET PO SCH (08:16)
[2025-04-22] MEDS ORDERED: ENOXAPARIN NA (PORCINE) 40 MG/0.4 ML DISP.SYRIN SQ SCH (10:00)
[2025-04-22] MEDS: amLODIPine BESYLATE 10 MG TABLET (FP) PO SCH (10:56)
[2025-04-22 13:13] VITALS: BMI 23.3
[2025-04-22 20:13] LABS: URINE APPEARANCE CLEAR; URINE BILIRUBIN NEGATIVE (NEGATIVE); URINE COLOR YELLOW; URINE GLUCOSE (UA) NEGATIVE (NEGATIVE); URINE KETONE NEGATIVE (NEGATIVE); URINE LEUK ESTERASE NEGATIVE (NEGATIVE); URINE NITRITE NEGATIVE (NEGATIVE); URINE PROTEIN NEGATIVE (NEGATIVE); URINE UROBILINOGEN 1.0 mg/dL (0.2-1.0)
[2025-04-22] MEDS ORDERED: TRIMETHOBENZAMIDE HCL 200MG/2ML INJ IM PRN (21:09)
[2025-04-23] MEDS: ACETAMINOPHEN 1000 MG/100 ML BAG IVPB PRN (06:26)
[2025-04-23] MEDS: BICTEGRAV/EMTRICIT/TENOFOV (BIKTARVY) 50-200-25 MG TABLET PO SCH (08:50)
[2025-04-23] MEDS: amLODIPine BESYLATE 10 MG TABLET (FP) PO SCH (09:35)
[2025-04-23] MEDS: LOSARTAN POTASSIUM 50 MG TABLET PO SCH (09:35)
[2025-04-23] MEDS: KETOROLAC TROMETHAMINE 30 MG/1 ML VIAL IVPUSH ONE (20:48)
[2025-04-23] MEDS: LORazepam 4 MG/1 ML VIAL IVPUSH ONE (21:19)
[2025-04-24] MEDS: ENOXAPARIN NA (PORCINE) 40 MG/0.4 ML DISP.SYRIN SQ SCH (20:50)
[2025-04-24] MEDS: hydrOXYzine PAMOATE 25 MG CAPSULE (FP) PO ONE (20:57)
[2025-04-25] MEDS: KETOROLAC TROMETHAMINE 15 MG/ML VIAL IVPUSH ONE (03:05)
[2025-04-25 06:37] VITALS: BP 110/85; PULSE 78; TEMP 98.8
[2025-04-25 17:29] VITALS: RESP 14
== END 2025-04-25 14:00 | disposition left against medical advice (07) | DRG 770 ==
LOC: JER 16:25 → JERBED 04-22 00:50 → OBSVTOIN 04-22 09:33 → J4W 04-22 11:14
PROVIDERS: ADMIT Hospitalist; ATTEND Internal Medicine
DX: F19.90 Other psychoactive substance use, unspecified, uncomplicated (principal); G92.9 Unspecified toxic encephalopathy; Z21 Asymptomatic human immunodeficiency virus [HIV] infection status; D64.9 Anemia, unspecified; F17.210 Nicotine dependence, cigarettes, uncomplicated; F43.10 Post-traumatic stress disorder, unspecified; I16.0 Hypertensive urgency
CPT/HCPCS: 0241U-QW; 36415; 70450-TC; 70496-TC; 70498-TC; 70551-TC; 70553-TC; 80048; 80053; 81003; 82962; 83735; 84484; 85025; 87086; 93005; 93010; 93306-TC; 99285-25; A9576; G0378

== ENCOUNTER 2025-05-30 17:15 | Observation (INO) | payer OTHER ==
[2025-05-30 20:06] LABS: MCHC 30.6 g/dl (32.3-36.5); MEAN CELL VOLUME 89.2 fl (79.0-92.2); MEAN PLT VOLUME 9.6 fl (9.4-12.4); RDW 15.6 % (12.1-15.9)
[2025-05-30 20:34] LABS: CO2 31.0 mmol/L (21-32); GLUCOSE,RANDOM 91.0 mg/dL (74-106)
[2025-05-30 20:36] LABS: SGOT/AST 22.0 U/L (15-37); SGPT/ALT 27.0 U/L (13-61)
[2025-05-30 20:38] LABS: TOT PROT 7.5 g/dl (6.4-8.2)
[2025-05-30 20:39] LABS: ALK PHOS 98.0 U/L (45-117)
[2025-05-30 20:41] LABS: CREATININE 1.0 mg/dL (0.55-1.3)
[2025-05-31] MEDS ORDERED: MORPHINE SULFATE 2 MG/ML SYRINGE IVPUSH PRN (00:08)
[2025-05-31] MEDS ORDERED: diazePAM CARPU-JECT 10 MG/2 ML DISP.SYRIN IVPUSH PRN (00:11)
[2025-05-31] MEDS ORDERED: MAGNESIUM SULFATE IN WATER 2 GM/50 ML IVPB IVPB ONE (00:41)
[2025-05-31] MEDS ORDERED: MELATONIN 5 MG TABLETS ONE (00:41)
[2025-05-31] MEDS: MAGNESIUM SULF 50% (8.12 MEQ/2 ML-1 GM VIAL) IVPB ONE (00:52)
[2025-05-31] MEDS: MELATONIN 5 MG TABLETS PO PRN (00:53)
[2025-05-31 01:51] VITALS: BMI 31.6
[2025-05-31 08:19] LABS: MCHC 30.9 g/dl (32.3-36.5); MEAN CELL VOLUME 87.4 fl (79.0-92.2); MEAN PLT VOLUME 9.9 fl (9.4-12.4); RDW 15.2 % (12.1-15.9)
[2025-05-31 08:46] LABS: CO2 31.0 mmol/L (21-32)
[2025-05-31 08:47] LABS: GLUCOSE,RANDOM 62.0 mg/dL (74-106); SGPT/ALT 24.0 U/L (13-61)
[2025-05-31 08:48] LABS: CREATININE 0.9 mg/dL (0.55-1.3); SGOT/AST 19.0 U/L (15-37)
[2025-05-31 08:49] LABS: TOT PROT 7.1 g/dl (6.4-8.2)
[2025-05-31 08:50] LABS: ALK PHOS 92.0 U/L (45-117)
[2025-05-31] MEDS: amLODIPine BESYLATE 10 MG TABLET (FP) PO SCH (10:01)
[2025-05-31] MEDS: ENOXAPARIN NA (PORCINE) 40 MG/0.4 ML DISP.SYRIN SQ SCH (10:02)
[2025-05-31] MEDS: BICTEGRAV/EMTRICIT/TENOFOV (BIKTARVY) 50-200-25 MG TABLET PO SCH (10:02)
[2025-05-31] MEDS: THIAMINE 100 MG TABLET PO SCH (21:17)
[2025-06-01] MEDS: POTASSIUM CHLORIDE ORAL LIQUID 20 MEQ/15 ML PO ONE (11:08)
[2025-06-01] MEDS: MAGNESIUM 1GM/D5W - 1 GM/100 ML IVPB IVPB ONE (11:16)
[2025-06-01] MEDS: POTASSIUM CHLORIDE TABS 20 MEQ TABLET.ER (FP) PO ONE (12:32)
[2025-06-01 12:45] LABS: MCHC 31.3 g/dl (32.3-36.5); MEAN CELL VOLUME 86.3 fl (79.0-92.2); MEAN PLT VOLUME 9.5 fl (9.4-12.4); RDW 15.1 % (12.1-15.9)
[2025-06-01 13:05] LABS: CO2 30.0 mmol/L (21-32); GLUCOSE,RANDOM 133.0 mg/dL (74-106)
[2025-06-01 13:08] LABS: CREATININE 0.9 mg/dL (0.55-1.3); SGOT/AST 20.0 U/L (15-37); SGPT/ALT 23.0 U/L (13-61)
[2025-06-01 13:10] LABS: TOT PROT 7.7 g/dl (6.4-8.2)
[2025-06-01 13:11] LABS: ALK PHOS 103.0 U/L (45-117)
[2025-06-01 17:24] LABS: HCV DIAGNOSTIC IN-HOUSE W/RFLX REACTIVE (NONREACTIVE)
[2025-06-04 05:21] LABS: HIV INTERPRETATION PRESUMPTIVE POSITIVE (NEGATIVE)
[2025-06-04 07:04] LABS: MCHC 31.3 g/dl (32.3-36.5); MEAN CELL VOLUME 86.7 fl (79.0-92.2); MEAN PLT VOLUME 9.7 fl (9.4-12.4); RDW 15.4 % (12.1-15.9)
[2025-06-04 07:39] LABS: CO2 30.0 mmol/L (21-32); GLUCOSE,RANDOM 86.0 mg/dL (74-106)
[2025-06-04 07:40] LABS: SGOT/AST 21.0 U/L (15-37); SGPT/ALT 28.0 U/L (13-61)
[2025-06-04 07:43] LABS: CREATININE 0.9 mg/dL (0.55-1.3); TOT PROT 8.1 g/dl (6.4-8.2)
[2025-06-04 07:44] LABS: ALK PHOS 111.0 U/L (45-117)
[2025-06-04 14:20] VITALS: RESP 18
[2025-06-04 18:09] VITALS: BP 120/85; PULSE 77; TEMP 97.7
[2025-06-04 18:25] LABS: HIV INTERPRETATION PRESUMPTIVE POSITIVE (NEGATIVE)
[2025-06-04] MEDS: PROMETHAZINE HCL ORAL SYRUP 6.25 MG/5 ML (BULK BOTTLE) PO ONE (20:07)
== END 2025-06-04 20:46 | disposition other institution (70) ==
LOC: JER 17:15 → UNDOADMOB 18:44 → JERBED 18:44 → INTOOBSV 18:44 → J6W TELE 05-31 01:35 → JERBED 05-31 01:35 → J6W TELE 06-01 09:20
PROVIDERS: ADMIT Hospitalist; ATTEND Internal Medicine
PROC: 3E023GC Introduction of Other Therapeutic Substance into Muscle, Percutaneous Approach (ICD-10-PCS; principal; 2025-06-01)
PROC: 3E033NZ Introduction of Analgesics, Hypnotics, Sedatives into Peripheral Vein, Percutaneous Approach (ICD-10-PCS; 2025-06-01)
PROC: 3E033GC Introduction of Other Therapeutic Substance into Peripheral Vein, Percutaneous Approach (ICD-10-PCS; 2025-06-01)
DX: F19.99 Other psychoactive substance use, unspecified with unspecified psychoactive substance-induced disorder (principal); F10.99 Alcohol use, unspecified with unspecified alcohol-induced disorder; J45.909 Unspecified asthma, uncomplicated; I10 Essential (primary) hypertension; K21.9 Gastro-esophageal reflux disease without esophagitis; B20 Human immunodeficiency virus [HIV] disease; F43.10 Post-traumatic stress disorder, unspecified; F41.8 Other specified anxiety disorders; I45.81 Long QT syndrome; Z91.013 Allergy to seafood; F17.210 Nicotine dependence, cigarettes, uncomplicated; Z95.2 Presence of prosthetic heart valve
CPT/HCPCS: 36415; 80053; 82607; 82746; 83735; 84100; 84436; 84439; 84443; 85025; 85027; 86359; 86360; 86803; 87389; 87522; 93005; 93010; 96365; 96372; 96375; 97116-GP; 97162-GP; 99285-25; G0378